=== PATIENT | male | born 1980 | race American Indian/Alaskan Native ===

== ENCOUNTER 2017-04-29 03:20 | Emergency (ER) | payer MEDICAID, OTHER ==
[2017-04-29 03:21] VITALS: BMI 28.0
[2017-04-29] MEDS ORDERED: Sodium Chloride 0.9% 1,000 ML IV STA (03:59)
--- NOTE | 2017-04-29 04:13 | ED PDOC ---
HPI: Abdomen Time Seen by Provider: 04/29/17 03:53 Chief Complaint (Nursing): Abdominal Pain Chief Complaint (Provider): Abdominal pain, Vomiting, Diarrhea History Per: Patient History/Exam Limitations: no limitations Onset/Duration Of Symptoms: Days (x 2) Outside of [place] travel?: No Current Symptoms Are (Timing): Still Present Additional Complaint(s): Rolando is a 36 y/o male with no past medical history, who presents to the ED for complaints of generalized abdominal pain, vomiting, and diarrhea, ongoing for 2 days. He reports 2-3 episodes daily of vomiting, and 2- 3 episodes of diarrhea. Vomiting has been non-bloody and non-bilious, but he states seeing a small amount of blood in the diarrhea at times. Denies any associated cough, fever, shortness of breath, or chest pain. Has not taken any remedies at home. PMD: None Past Medical History Reviewed: Historical Data, Nursing Documentation, Vital Signs Vital Signs: Last Vital Signs Temp 98.6 F 04/29/17 03:29 Pulse 89 04/29/17 03:29 Resp 17 04/29/17 03:29 BP 145/104 H 04/29/17 03:29 Pulse Ox 98 04/29/17 04:13 - Medical History PMH: Asthma, HTN (non compliant) Denies: Depression, HIV - Surgical History Surgical History: No Surg Hx - Family History Family History: States: Hypertension - Social History Current smoker - smoking cessation education provided: No Alcohol: None Drugs: Denies - Home Medications Home Medications: Ambulatory Orders Medication Instructions Recorded Dicyclomine [Bentyl] 20 mg PO Q12 PRN #20 tab 04/29/17 Ondansetron ODT [Zofran ODT] 4 mg PO Q6 PRN #16 odt 04/29/17 - Allergies Allergies/Adverse Reactions: Allergies Allergy/AdvReac Type Severity Reaction Status Date / Time No Known Allergies Allergy Verified 10/13/15 02:40 Review of Systems ROS Statement: Except As Marked, All Systems Reviewed And Found Negative Constitutional: Negative for: Fever Cardiovascular: Negative for: Chest Pain Respiratory: Negative for: Cough, Shortness of Breath Gastrointestinal: Positive for: Nausea, Vomiting, Abdominal Pain, Diarrhea, Hematochezia. Negative for: Hematemesis Physical Exam - Reviewed Nursing Documentation Reviewed: Yes Vital Signs Reviewed: Yes - Physical Exam Appears: Positive for: Non-toxic, No Acute Distress Head Exam: Positive for: ATRAUMATIC, NORMAL INSPECTION, NORMOCEPHALIC Skin: Positive for: Normal Color, Warm, Dry Eye Exam: Positive for: EOMI, Normal appearance, PERRL Neck: Positive for: Normal, Painless ROM, Supple Cardiovascular/Chest: Positive for: Regular Rate, Rhythm. Negative for: Murmur Respiratory: Positive for: Normal Breath Sounds. Negative for: Accessory Muscle Use, Respiratory Distress Gastrointestinal/Abdominal: Positive for: Soft, Tenderness (Epigastric tenderness) Back: Positive for: Normal Inspection Extremity: Positive for: Normal ROM. Negative for: Pedal Edema, Deformity Neurologic/Psych: Positive for: Alert, Oriented. Negative for: Motor/Sensory Deficits - Laboratory Results Result Diagrams: 04/29/17 04:25 04/29/17 04:06 - ECG O2 Sat by Pulse Oximetry: 98 (RA) Pulse Ox Interpretation: Normal Medical Decision Making Medical Decision Making: Time: 03:58 Initial Impression: 36 y/o male with abdominal pain and diarrheal illness Initial Plan: --Labs --IV fluids --Trial of Bentyl and Zofran --Pending reevaluation and disposition Time: 04:57 --Labs reviewed, revealing no clinically significant abnormalities --Patient reports marked improvement in symptoms --Patient is medically stable and will be discharged home with Prescriptions for Bentyl and Zofran Clinical Impression: Gastroenteritis Scribe Attestation: Documented by Brigette German, acting as a scribe for Satinder German MD Provider Scribe Attestation: All medical record entries made by the Scribe were at my direction and personally dictated by me. I have reviewed the chart and agree that the record accurately reflects my personal performance of the history, physical exam, medical decision making, and the department course for this patient. I have also personally directed, reviewed, and agree with the discharge instructions and disposition. Disposition - Clinical Impression Clinical Impression: Gastroenteritis - Patient ED Disposition Is Patient to be Admitted: No Counseled Patient/Family Regarding: Studies Performed, Diagnosis, Need For Followup, Rx Given - Disposition Referrals: [facility] [Outside] Disposition: Routine/Home Disposition Time: 04:57 Condition: STABLE Prescriptions: Dicyclomine [Bentyl] 20 mg PO Q12 PRN #20 tab PRN Reason: abdominal pain/diarrhea Ondansetron ODT [Zofran ODT] 4 mg PO Q6 PRN #16 odt PRN Reason: Nausea/Vomiting Instructions: Gastroenteritis (ED) Forms: [employer] (Lao)
[2017-04-29 04:37] LABS: BASO # 0.1 K/uL (0.0-0.2); EOS # 0.3 K/uL (0.0-0.7); EOS % 3.9 % (0.0-4.0); HEMATOCRIT 41.7 % (35.0-51.0); LYMPH # 3.6 K/uL (1.0-4.3); LYMPH % 46.9 % (20.0-40.0); MEAN CELL VOLUME 85.1 fl (80.0-94.0); MEAN CORPUSCULAR HEMOGLOBIN 28.6 pg (27.0-31.0); MEAN CORPUSCULAR HGB CONC 33.7 g/dL (33.0-37.0); MEAN PLATELET VOLUME 9.6 fl (7.2-11.7); MONO # 0.6 K/uL (0.0-0.8); NEUT # 3.1 K/uL (1.8-7.0); NEUT % 40.2 % (50.0-75.0); NRBC % 0.2 % (0.0-0.0); RED CELL DISTRIBUTION WIDTH 14.6 % (11.5-14.5); WHITE BLOOD COUNT 7.7 K/uL (4.8-10.8)
[2017-04-29 04:49] LABS: ALB/GLOB RATIO 1.3 (1.0-2.1); ALCOHOL SERUM < 10 mg/dl (0-10); ALKALINE PHOSPHATASE 56 U/L (38-126); ALT/SGPT 46 U/L (21-72); AST/SGOT 24 U/L (17-59); BILIRUBIN,TOTAL 0.5 mg/dl (0.2-1.3); BLOOD UREA NITROGEN 12 mg/dl (9-20); CARBON DIOXIDE 24 mmol/L (22-30); CHLORIDE 107 mmol/L (98-107); GFR AFRICAN-AMERICAN > 60; GLUCOSE,RANDOM 102 mg/dL (75-110); LIPASE 78 U/L (23-300); SODIUM 141 mmol/l (132-148); TOTAL PROTEIN 7.4 G/DL (6.3-8.2)
[2017-04-29 04:50] LABS: POTASSIUM 4.2 MMOL/L (3.6-5.0)
[2017-04-29 05:58] VITALS: BP 138/80; PULSE 70; RESP 16; TEMP 98; O2SAT 96
== END 2017-04-29 05:58 | disposition home or self-care (01) ==
LOC: H.ER 03:20
DX: K52.9 Noninfective gastroenteritis and colitis, unspecified (principal); I10 Essential (primary) hypertension; F17.210 Nicotine dependence, cigarettes, uncomplicated
CPT/HCPCS: 80053; 80320; 83690; 85025; 96360; 99284; J2405; J7040

== ENCOUNTER 2017-05-04 18:21 | Emergency (ER) | payer MEDICAID, OTHER ==
[2017-05-04 18:21] VITALS: BMI 28.0
[2017-05-04 18:32] VITALS: RESP 18; TEMP 98.6; O2SAT 99
[2017-05-04 19:02] LABS: BASO # 0.1 K/uL (0.0-0.2); BASO % 1.2 % (0.0-2.0); EOS # 0.2 K/uL (0.0-0.7); EOS % 2.9 % (0.0-4.0); HEMATOCRIT 39.9 % (35.0-51.0); LYMPH % 31.5 % (20.0-40.0); MEAN CORPUSCULAR HEMOGLOBIN 28.9 pg (27.0-31.0); MEAN PLATELET VOLUME 9.5 fl (7.2-11.7); MONO # 0.4 K/uL (0.0-0.8); MONO % 6.7 % (0.0-10.0); NEUT # 3.7 K/uL (1.8-7.0); NEUT % 57.7 % (50.0-75.0); NRBC % 0.1 % (0.0-0.0); RED CELL DISTRIBUTION WIDTH 14.6 % (11.5-14.5); WHITE BLOOD COUNT 6.5 K/uL (4.8-10.8)
[2017-05-04 19:16] LABS: ALB/GLOB RATIO 1.3 (1.0-2.1); ALKALINE PHOSPHATASE 64 U/L (38-126); ALT/SGPT 46 U/L (21-72); AST/SGOT 23 U/L (17-59); BILIRUBIN,TOTAL 0.3 mg/dl (0.2-1.3); BLOOD UREA NITROGEN 15 mg/dl (9-20); CALCIUM 9.7 mg/dL (8.4-10.2); CARBON DIOXIDE 22 mmol/L (22-30); CHLORIDE 109 mmol/L (98-107); GFR AFRICAN-AMERICAN > 60; GLUCOSE,RANDOM 128 mg/dL (75-110); LIPASE 78 U/L (23-300); MAGNESIUM 1.8 MG/DL (1.6-2.3); SODIUM 141 mmol/l (132-148); TOTAL PROTEIN 7.3 G/DL (6.3-8.2)
[2017-05-04 19:26] LABS: PARTIAL THROMBOPLASTIN TIME 30.8 Seconds (25.6-37.1)
[2017-05-04] MEDS ORDERED: Sodium Chloride 0.9% 500 ML IV ONE (19:51)
--- NOTE | 2017-05-04 19:59 | ED PDOC ---
HPI: Chest Pain Time Seen by Provider: 05/04/17 18:38 Chief Complaint (Nursing): Chest Pain History Per: Patient History/Exam Limitations: no limitations Onset/Duration Of Symptoms: Gradual (several months), Worse Since (for one week) Current Symptoms Are (Timing): Gone Now Severity: Mild Front/Back of Body, Lg (Color): 1 - sharp rads to shoulder Quality: Dull Associated Symptoms: denies: Nausea, Dyspnea, Diaphoresis, Syncope Modifying Factors: None Exacerbating Factors: Movement Alleviating Factors: None Additional Complaint(s): worse for one week, admits to smoking pcp, marijuana earlier today Past Medical History Reviewed: Historical Data, Nursing Documentation, Vital Signs Vital Signs: Last Vital Signs Temp 98.6 F 05/04/17 18:30 Pulse 101 H 05/04/17 20:41 Resp 18 05/04/17 20:41 BP 159/101 H 05/04/17 20:41 Pulse Ox 99 05/04/17 20:41 - Medical History PMH: Asthma, HTN (non compliant) Denies: Depression, HIV - Family History Family History: States: Unknown Family Hx, Hypertension - Living Arrangements Living Arrangements: With Family - Social History Current smoker - smoking cessation education provided: Yes Drugs: Cannabis, Other (pcp) - Home Medications Home Medications: Ambulatory Orders Medication Instructions Recorded Dicyclomine [Bentyl] 20 mg PO Q12 PRN #20 tab 04/29/17 Ondansetron ODT [Zofran ODT] 4 mg PO Q6 PRN #16 odt 04/29/17 - Allergies Allergies/Adverse Reactions: Allergies Allergy/AdvReac Type Severity Reaction Status Date / Time No Known Allergies Allergy Verified 10/13/15 02:40 ANAY Risk Score for UA/NSTEMI - ANAY Risk Score Age > 64: NO 3 or more CAD Risk Factors: NO Known CAD (Stenosis greater than 50%): NO Aspirin use in past 7 days: NO Severe Angina: NO EKG ST changes greater than 0.5mm: NO Positive Cardiac Marker: NO ANAY Score: 0 Risk %: 5% Review of Systems ROS Statement: Except As Marked, All Systems Reviewed And Found Negative Constitutional: Negative for: Fever, Chills Cardiovascular: Positive for: Chest Pain. Negative for: Palpitations Respiratory: Negative for: Cough, Shortness of Breath Gastrointestinal: Positive for: Nausea. Negative for: Vomiting, Abdominal Pain Neurological: Negative for: Weakness, Numbness, Confusion, Seizures, Altered Mental Status, Headache, Dizziness Physical Exam - Reviewed Nursing Documentation Reviewed: Yes Vital Signs Reviewed: Yes - Physical Exam Appears: Positive for: Uncomfortable Head Exam: Positive for: ATRAUMATIC, NORMAL INSPECTION, NORMOCEPHALIC Eye Exam: Positive for: Normal appearance, EOMI, PERRL Neck: Positive for: Normal, Painless ROM, Supple Cardiovascular/Chest: Positive for: Regular Rate, Rhythm. Negative for: Chest Non Tender (left chest reporduces compalitns), Edema, Gallop, Murmur, Bradycardia, Tachycardia, Ectopy, Friction Rub, Irregularly Irregular Respiratory: Positive for: Normal Breath Sounds. Negative for: Decreased Breath Sounds, Accessory Muscle Use, Crackles, Rales, Rhonchi, Stridor, Wheezing , Respiratory Distress Pulses-Radial (L): 2+ Pulses-Radial (R): 2+ Gastrointestinal/Abdominal: Positive for: Normal Exam, Bowel Sounds, Soft. Negative for: Tenderness Back: Positive for: Normal Inspection. Negative for: L CVA Tenderness, R CVA Tenderness Extremity: Positive for: Normal ROM. 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 Negative for: Motor/Sensory Deficits, Aphasia, Facial Droop - Laboratory Results Result Diagrams: 05/04/17 18:50 05/04/17 18:55 - ECG ECG: Positive for: Interpreted By Me ECG Rhythm: Positive for: Sinus Tachycardia (119). Negative for: ST/T Changes Interpretation Of Abn EKG: rate of 116 no evidence of ischemia O2 Sat by Pulse Oximetry: 99 Pulse Ox Interpretation: Normal - Radiology X-Ray: Interpreted by Me X-Ray Interpretation: No Acute Disease - Progress ED Course And Treament: d dimer and trop neg. advise close cards follow no exertion including sexual exertion until seen by cardiology advise to stop using drugs.. Re-evaluation Time: 21:00 Condition: Improved Disposition - Clinical Impression Clinical Impression: Chest pain - Patient ED Disposition Is Patient to be Admitted: No Counseled Patient/Family Regarding: Studies Performed, Diagnosis, Need For Followup - Disposition Referrals: Daniel Be MD [Staff Provider] - (2 to 3 days) [facility] [Outside] (2 to 3 days) Disposition: Routine/Home Disposition Time: 21:00 Condition: GOOD Instructions: Chest Pain (ED) Forms: [employer] (Burundian)
[2017-05-04 20:41] VITALS: BP 159/101; PULSE 101
[2017-05-04 22:21] LABS: RBC URINE < 1 /hpf (0-3); URINE BACTERIA RARE (<OCC); URINE BILIRUBIN NEGATIVE (NEGATIVE); URINE BLOOD SMALL (NEGATIVE); URINE COLOR STRAW (YELLOW); URINE GLUCOSE (UA) NEG (Normal); URINE KETONE NEGATIVE (NEGATIVE); URINE LEUKOCYTE ESTERASE NEG Leu/uL (Negative); URINE PROTEIN NEGATIVE (NEGATIVE); URINE UROBILINOGEN 0.2-1.0 mg/dL (0.2-1.0); WBC URINE < 1 /hpf (0-5)
--- NOTE | 2017-05-05 07:52 | RAD ---
HISTORY: cp COMPARISON: Comparison is made to 10/13/2015 TECHNIQUE: Chest PA and lateral FINDINGS: LUNGS: No active pulmonary disease. PLEURA: No significant pleural effusion identified. No pneumothorax apparent. CARDIOVASCULAR: Normal. OSSEOUS STRUCTURES: No significant abnormalities. VISUALIZED UPPER ABDOMEN: Normal. OTHER FINDINGS: None. IMPRESSION: No active disease.
--- NOTE | 2017-05-05 11:22 | CARD ---
APPROVED REPORT EKG Measurement Heart [id number] <Conclusion> Sinus tachycardia Otherwise normal ECG
== END 2017-05-04 22:46 | disposition home or self-care (01) ==
LOC: H.ER 18:21
DX: R07.89 Other chest pain (principal); I10 Essential (primary) hypertension
CPT/HCPCS: 71020; 80053; 80324; 80345; 80346; 80349; 80353; 80358; 80361; 81003; 83690; 83735; 83880; 83992; 84484; 85025; 85378; 85610; 85730; 93005; 99283; J7040

== ENCOUNTER 2017-08-04 13:53 | Emergency (ER) | payer MEDICAID ==
[2017-08-04 13:53] VITALS: BMI 35.2
[2017-08-04 13:57] VITALS: BP 162/111; PULSE 124; RESP 18; TEMP 97; O2SAT 97
--- NOTE | 2017-08-04 14:20 | ED PDOC ---
HPI: Altered Mental Status Time Seen by Provider: 08/04/17 13:59 Chief Complaint (Nursing): Altered Mental Status Chief Complaint (Provider): AMS History Per: Patient History/Exam Limitations: Clinical Condition Onset/Duration Of Symptoms: Days (x1) Onset Of Symptoms: Cannot Confirm Onset Usual Baseline: Unknown Exacerbating Factor(s): Unknown Use Of Anticoag/Antiplatlets: Unknown Associated Symptoms: denies: Chest Pain, Headache, Other (Palpitations) Additional Complaint(s): Rolando Villegas is a 36 year old male, with a past medical history of HTN, who was brought to the emergency department by EMS after he was found face down in the hallway of his building with AMS. Patient has no recollection of events. No witnesses to provide history of patient. He denies headache, chest pain, palpitations or ingesting drugs. No further medical complaints. PMD: None provided. Past Medical History Reviewed: Historical Data, Nursing Documentation, Vital Signs Vital Signs: Last Vital Signs Temp 97 F L 08/04/17 13:54 Pulse 124 H 08/04/17 13:54 Resp 18 08/04/17 13:54 BP 162/111 H 08/04/17 13:54 Pulse Ox 97 08/04/17 13:54 - Medical History PMH: Asthma, HTN (non compliant) Denies: Depression, HIV - Family History Family History: States: Unknown Family Hx, Hypertension - Social History Current smoker - smoking cessation education provided: Yes (Light smoker <10 cigarettes daily) Alcohol: Social Drugs: Other - Home Medications Home Medications: Ambulatory Orders Medication Instructions Recorded Dicyclomine [Bentyl] 20 mg PO Q12 PRN #20 tab 04/29/17 Ondansetron ODT [Zofran ODT] 4 mg PO Q6 PRN #16 odt 04/29/17 - Allergies Allergies/Adverse Reactions: Allergies Allergy/AdvReac Type Severity Reaction Status Date / Time No Known Allergies Allergy Verified 08/04/17 13:54 Review of Systems ROS Statement: Except As Marked, All Systems Reviewed And Found Negative Cardiovascular: Negative for: Chest Pain, Palpitations Neurological: Positive for: Altered Mental Status. Negative for: Headache Physical Exam - Reviewed Nursing Documentation Reviewed: Yes Vital Signs Reviewed: Yes - Physical Exam Appears: Positive for: Non-toxic Head Exam: Positive for: ATRAUMATIC, NORMAL INSPECTION, NORMOCEPHALIC Skin: Positive for: Normal Color, Warm, Dry Eye Exam: Positive for: EOMI, Normal appearance, PERRL Neck: Positive for: Normal, Painless ROM, Supple Cardiovascular/Chest: Positive for: Regular Rate, Rhythm. Negative for: Murmur Respiratory: Positive for: Normal Breath Sounds (clear bilaterally). Negative for: Respiratory Distress Gastrointestinal/Abdominal: Positive for: Normal Exam, Bowel Sounds, Soft. Negative for: Tenderness, Guarding, Rebound Back: Positive for: Normal Inspection. Negative for: L CVA Tenderness, R CVA Tenderness Extremity: Positive for: Normal ROM. Negative for: Deformity, Swelling Neurologic/Psych: Positive for: Alert, Oriented. 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 PLEURA: No significant pleural effusion identified. No pneumothorax apparent. CARDIOVASCULAR: Normal. OSSEOUS STRUCTURES: No significant abnormalities. VISUALIZED UPPER ABDOMEN: Normal. OTHER FINDINGS: None. IMPRESSION: No active disease. Scribe Attestation: Documented by Bob Conn acting as a scribe for Jermaine Corado MD. MD Marquez Attestation: All medical record entries made by the Scribe were at my direction and personally dictated by me. I have reviewed the chart and agree that the record accurately reflects my personal performance of the history, physical exam, medical decision making, and the department course for this patient. I have also personally directed, reviewed, and agree with the discharge instructions and disposition. Disposition - Clinical Impression Clinical Impression: Altered mental status - Patient ED Disposition Is Patient to be Admitted: Transfer of Care - Disposition Disposition: Transfer of Care Disposition Time: 15:00 Condition: FAIR Forms: [employer] (South African) Patient Signed Over To: Jamal Doyle
--- NOTE | 2017-08-04 14:55 | RAD ---
HISTORY: Syncop COMPARISON: 05/04/2017 TECHNIQUE: Chest PA and lateral FINDINGS: LUNGS: No active pulmonary disease. PLEURA: No significant pleural effusion identified. No pneumothorax apparent. CARDIOVASCULAR: Normal. OSSEOUS STRUCTURES: No significant abnormalities. VISUALIZED UPPER ABDOMEN: Normal. OTHER FINDINGS: None. IMPRESSION: No active disease.
--- NOTE | 2017-08-04 14:57 | CT ---
PROCEDURE: CT HEAD WITHOUT CONTRAST. HISTORY: r/o bleed COMPARISON: 12/18/2012 TECHNIQUE: Axial computed tomography images were obtained through the head/brain without intravenous contrast. Coronal and sagittal reconstructed images. Radiation dose: Total exam DLP = 857.65 mGy-cm. This CT exam was performed using one or more of the following dose reduction techniques: Automated exposure control, adjustment of the mA and/or kV according to patient size, and/or use of iterative reconstruction technique. FINDINGS: HEMORRHAGE: No intracranial hemorrhage. BRAIN: No mass effect or edema. No atrophy or chronic microvascular ischemic changes. VENTRICLES: Unremarkable. No hydrocephalus. CALVARIUM: Unremarkable. PARANASAL SINUSES: Unremarkable as visualized. No significant inflammatory changes. MASTOID AIR CELLS: Unremarkable as visualized. No inflammatory changes. OTHER FINDINGS: None. IMPRESSION: No acute intracranial abnormalities. No significant findings to account for the clinical presentation. No significant interval change compared to the prior examination(s).
[2017-08-04 15:24] LABS: BASO # 0.1 K/uL (0.0-0.2); BASO % 1.3 % (0.0-2.0); EOS # 0.1 K/uL (0.0-0.7); EOS % 1.6 % (0.0-4.0); HEMATOCRIT 40.7 % (35.0-51.0); LYMPH # 1.5 K/uL (1.0-4.3); LYMPH % 18.7 % (20.0-40.0); MEAN CELL VOLUME 85.7 fl (80.0-94.0); MEAN CORPUSCULAR HEMOGLOBIN 28.6 pg (27.0-31.0); MEAN CORPUSCULAR HGB CONC 33.4 g/dL (33.0-37.0); MEAN PLATELET VOLUME 9.7 fl (7.2-11.7); MONO # 0.5 K/uL (0.0-0.8); MONO % 6.5 % (0.0-10.0); NEUT % 71.9 % (50.0-75.0); WHITE BLOOD COUNT 8.3 K/uL (4.8-10.8)
[2017-08-04 15:25] LABS: ALB/GLOB RATIO 1.4 (1.0-2.1); ALCOHOL SERUM < 10 mg/dl (0-10); ALKALINE PHOSPHATASE 55 U/L (38-126); ALT/SGPT 42 U/L (21-72); AST/SGOT 17 U/L (17-59); BILIRUBIN,TOTAL 0.3 mg/dl (0.2-1.3); BLOOD UREA NITROGEN 17 mg/dl (9-20); CALCIUM 9.5 mg/dL (8.4-10.2); CARBON DIOXIDE 23 mmol/L (22-30); CHLORIDE 111 mmol/L (98-107); GFR AFRICAN-AMERICAN > 60; GLUCOSE,RANDOM 97 mg/dL (75-110); POTASSIUM 3.7 MMOL/L (3.6-5.0); SODIUM 143 mmol/l (132-148); TOTAL PROTEIN 7.3 G/DL (6.3-8.2)
--- NOTE | 2017-08-04 18:08 | ED PDOC ---
- Laboratory Results Result Diagrams: 08/04/17 14:50 08/04/17 15:08 Interpretation Of Abn Labs: no acute - ECG O2 Sat by Pulse Oximetry: 97 (RA) - CT Scan/US ct Other Rad Studies (CT/US): Read By Radiologist Other Rad Interpretation: no acute - Progress ED Course And Treament: 1500: Took over care from Dr. Corado. Pt. found down so brought to the ED. Hx of pcp used ED visits. Pt. currently AAOx3. Pain free. Tolerating po. Pending blood work and urine. 1650: Pt. not found in room. Last seen 1600, pt. was aaox3. Ambulating with no issues. Had capacity to make decisions. Left before treatment complete. Disposition - Clinical Impression Clinical Impression: Drug abuse - POA Present On Arrival: None - Disposition Disposition: Left W/O Treatment Disposition Time: 16:50 Condition: STABLE
--- NOTE | 2017-08-05 09:01 | CARD ---
APPROVED REPORT EKG Measurement Heart [id number] [place] [id number] [id number] <Conclusion> Normal sinus rhythm Normal ECG
== END 2017-08-04 16:20 | disposition left against medical advice (07) ==
LOC: H.ER 13:53
DX: F19.10 Other psychoactive substance abuse, uncomplicated (principal); F17.210 Nicotine dependence, cigarettes, uncomplicated; I10 Essential (primary) hypertension; J45.909 Unspecified asthma, uncomplicated

== ENCOUNTER 2017-09-27 01:18 | Emergency (ER) | payer MEDICAID ==
[2017-09-27 01:18] VITALS: BMI 35.2
[2017-09-27 01:37] VITALS: RESP 18; TEMP 98.4; O2SAT 99
--- NOTE | 2017-09-27 01:59 | ED PDOC ---
HPI: Chest Pain Time Seen by Provider: 09/27/17 01:36 Chief Complaint (Nursing): Chest Pain Chief Complaint (Provider): chest pain History Per: Patient History/Exam Limitations: no limitations Onset/Duration Of Symptoms: Hrs (6) Current Symptoms Are (Timing): Still Present Quality: Aching Additional History Per: Patient Additional Complaint(s): 36 y/o male presents with left-sided chest discomfort x 6 hours. Associated "tingling" to left hand. Denies fever, headache, dizziness, extremity weakness , shortness of breath, palpitations, abdominal pain, leg pain/swelling. Past Medical History Reviewed: Historical Data, Nursing Documentation, Vital Signs Vital Signs: Last Vital Signs Temp 98.4 F 09/27/17 01:35 Pulse 80 09/27/17 02:30 Resp 18 09/27/17 01:35 BP 140/101 H 09/27/17 02:30 Pulse Ox 99 09/27/17 03:00 - Medical History PMH: Asthma, HTN (non compliant), Hypercholesterolemia Denies: Depression, HIV - Surgical History Surgical History: No Surg Hx - Family History Family History: States: Unknown Family Hx, Hypertension - Home Medications Home Medications: Ambulatory Orders Medication Instructions Recorded Dicyclomine [Bentyl] 20 mg PO Q12 PRN #20 tab 04/29/17 Ondansetron ODT [Zofran ODT] 4 mg PO Q6 PRN #16 odt 04/29/17 - Allergies Allergies/Adverse Reactions: Allergies Allergy/AdvReac Type Severity Reaction Status Date / Time No Known Allergies Allergy Verified 08/04/17 13:54 ANAY Risk Score for UA/NSTEMI - ANAY Risk Score Age > 64: NO 3 or more CAD Risk Factors: NO Known CAD (Stenosis greater than 50%): NO Aspirin use in past 7 days: NO Severe Angina: NO EKG ST changes greater than 0.5mm: NO Positive Cardiac Marker: NO ANAY Score: 0 Risk %: 5% Review of Systems ROS Statement: Except As Marked, All Systems Reviewed And Found Negative Cardiovascular: Positive for: Chest Pain Physical Exam - Reviewed Nursing Documentation Reviewed: Yes Vital Signs Reviewed: Yes - Physical Exam Appears: Positive for: Well, Non-toxic, No Acute Distress Head Exam: Positive for: ATRAUMATIC, NORMAL INSPECTION, NORMOCEPHALIC Skin: Positive for: Normal Color Eye Exam: Positive for: Normal appearance ENT: Positive for: Normal ENT Inspection Cardiovascular/Chest: Positive for: Regular Rate, Rhythm Respiratory: Positive for: Normal Breath Sounds Gastrointestinal/Abdominal: Positive for: Normal Exam Back: Positive for: Normal Inspection Extremity: Positive for: Normal ROM Neurologic/Psych: Positive for: Alert, Oriented - Laboratory Results Result Diagrams: 09/27/17 02:15 09/27/17 02:15 - ECG ECG: Positive for: Viewed By Me (reviewed by ED attending) ECG Rhythm: Positive for: Sinus Rhythm O2 Sat by Pulse Oximetry: 99 Pulse Ox Interpretation: Normal - Radiology X-Ray: Viewed By Me X-Ray Interpretation: No Acute Disease - Progress ED Course And Treament: labs, ekg, chest xray Second trop neg. Case discussed with ED attending Dr. Pride; agrees with plan to discharge and follow up outpatient. Patient educated on findings, advised follow up PMD 2-3 days. Return precautions given. Disposition - Clinical Impression Clinical Impression: Chest pain - Patient ED Disposition Is Patient to be Admitted: No Counseled Patient/Family Regarding: Studies Performed, Diagnosis, Need For Followup - Disposition Referrals: Chanell Dean MD [Medical Doctor] - Disposition: Routine/Home Disposition Time: 05:44 Condition: STABLE Instructions: Chest Pain (ED)
[2017-09-27 02:29] LABS: BASO # 0.2 K/uL (0.0-0.2); BASO % 2.9 % (0.0-2.0); EOS # 0.2 K/uL (0.0-0.7); HEMOGLOBIN 13.2 g/dL (12.0-18.0); LYMPH # 3.8 K/uL (1.0-4.3); LYMPH % 52.7 % (20.0-40.0); MEAN CELL VOLUME 84.6 fl (80.0-94.0); MEAN CORPUSCULAR HEMOGLOBIN 28.4 pg (27.0-31.0); MEAN CORPUSCULAR HGB CONC 33.6 g/dL (33.0-37.0); MEAN PLATELET VOLUME 9.2 fl (7.2-11.7); MONO # 0.5 K/uL (0.0-0.8); MONO % 7.5 % (0.0-10.0); NEUT # 2.5 K/uL (1.8-7.0); NEUT % 33.9 % (50.0-75.0); RBC 4.63 Mil/uL (4.40-5.90); RED CELL DISTRIBUTION WIDTH 14.8 % (11.5-14.5); WHITE BLOOD COUNT 7.3 K/uL (4.8-10.8)
[2017-09-27 02:38] LABS: ALB/GLOB RATIO 1.3 (1.0-2.1); ALBUMIN 3.9 g/dL (3.5-5.0); ALT/SGPT 32 U/L (21-72); AST/SGOT 20 U/L (17-59); BLOOD UREA NITROGEN 13 mg/dl (9-20); GFR AFRICAN-AMERICAN > 60; GFR NON-AFRICAN AMERICAN > 60
[2017-09-27 06:13] VITALS: BP 128/84; PULSE 82
--- NOTE | 2017-09-27 13:43 | RAD ---
HISTORY: chest pain COMPARISON: 08/04/2017 TECHNIQUE: Chest PA and lateral FINDINGS: LUNGS: No active pulmonary disease. PLEURA: No significant pleural effusion identified. No pneumothorax apparent. CARDIOVASCULAR: Normal. OSSEOUS STRUCTURES: No significant abnormalities. VISUALIZED UPPER ABDOMEN: Normal. OTHER FINDINGS: None. IMPRESSION: No active disease. No significant interval change compared to the prior examination(s).
--- NOTE | 2017-09-28 09:42 | CARD ---
APPROVED REPORT EKG Measurement Heart [id number] [place] [id number] [id number] <Conclusion> Normal sinus rhythm Normal ECG
== END 2017-09-27 06:15 | disposition home or self-care (01) ==
LOC: H.ER 01:18
DX: R07.89 Other chest pain (principal)

== ENCOUNTER 2018-01-09 01:57 | Emergency (ER) | payer MEDICAID ==
[2018-01-09 01:57] VITALS: BMI 35.2
[2018-01-09 02:56] VITALS: BP 143/97; PULSE 80; RESP 16; TEMP 97.5; O2SAT 98
== END 2018-01-09 03:20 | disposition left against medical advice (07) ==
LOC: H.ER 01:57
DX: Z02.89 Encounter for other administrative examinations (principal); R10.9 Unspecified abdominal pain

== ENCOUNTER 2018-02-07 00:32 | Emergency (ER) | payer MEDICAID ==
[2018-02-07 00:32] VITALS: BMI 35.2
[2018-02-07 00:57] VITALS: RESP 18
--- NOTE | 2018-02-07 01:17 | ED PDOC ---
HPI: Abdomen Time Seen by Provider: 02/07/18 00:53 Chief Complaint (Nursing): Abdominal Pain Chief Complaint (Provider): abdominal pain History Per: Patient History/Exam Limitations: no limitations Onset/Duration Of Symptoms: Days (weeks), Waxing/Waning Location Of Pain/Discomfort: Epigastric Associated Symptoms: Nausea, Vomiting Additional Complaint(s): 37 y/o male presents for evaluation of intermittent epigastric abdominal pain x 3 weeks. Associated vomiting, mostly after eating greasy or spicy foods. Denies fever, chest pain, shortness of breath, palpitations , changes in bowel movements, urinary symptoms. Past Medical History Reviewed: Historical Data, Nursing Documentation, Vital Signs Vital Signs: Last Vital Signs Temp 97.6 F 02/07/18 04:53 Pulse 84 02/07/18 04:53 Resp 18 02/07/18 04:53 BP 128/89 02/07/18 04:53 Pulse Ox 98 02/07/18 04:53 - Medical History PMH: Asthma, HTN (non compliant), Hypercholesterolemia Denies: Depression, HIV - Surgical History Surgical History: No Surg Hx - Family History Family History: States: Unknown Family Hx, Hypertension - Home Medications Home Medications: Ambulatory Orders Medication Instructions Recorded Dicyclomine [Bentyl] 20 mg PO Q12 PRN #20 tab 04/29/17 Ondansetron ODT [Zofran ODT] 4 mg PO Q6 PRN #16 odt 04/29/17 Famotidine [Pepcid] 20 mg PO BID #10 tab 02/07/18 Ondansetron ODT [Zofran ODT] 4 mg PO Q8 PRN #10 odt 02/07/18 - Allergies Allergies/Adverse Reactions: Allergies Allergy/AdvReac Type Severity Reaction Status Date / Time No Known Allergies Allergy Verified 08/04/17 13:54 Review of Systems ROS Statement: Except As Marked, All Systems Reviewed And Found Negative Gastrointestinal: Positive for: Nausea, Vomiting, Abdominal Pain Physical Exam - Reviewed Nursing Documentation Reviewed: Yes Vital Signs Reviewed: Yes - Physical Exam Appears: Positive for: Well, Non-toxic, No Acute Distress (sleeping) Head Exam: Positive for: ATRAUMATIC, NORMAL INSPECTION, NORMOCEPHALIC Skin: Positive for: Normal Color Eye Exam: Positive for: Normal appearance ENT: Positive for: Normal ENT Inspection Cardiovascular/Chest: Positive for: Regular Rate, Rhythm Respiratory: Positive for: Normal Breath Sounds Gastrointestinal/Abdominal: Positive for: Bowel Sounds, Soft, Tenderness ( epigastric) Back: Positive for: Normal Inspection Extremity: Positive for: Normal ROM Neurologic/Psych: Positive for: Alert, Oriented - Laboratory Results Result Diagrams: 02/07/18 01:25 02/07/18 01:25 - ECG O2 Sat by Pulse Oximetry: 99 - Progress ED Course And Treament: labs, IV fluids, IV pepcid, ODT zofran EXAM: CT Abdomen and Pelvis With Intravenous Contrast EXAM DATE/TIME: 02/07/2018 1:52 AM CLINICAL HISTORY: 37 years old, male; Pain; Abdominal pain; Epigastric; Additional info: Epigastric pain, elevated lipase TECHNIQUE: Axial computed tomography images of the abdomen and pelvis with intravenous contrast. All CT scans at this facility use one or more dose reduction techniques, viz.: automated exposure control; ma/kV adjustment per patient size (including targeted exams where dose is matched to indication; i.e. head); or iterative reconstruction technique. CONTRAST: 95 ml of [id number] administered intravenously. COMPARISON: CT ABD AND PELVIS 2013-11-10 13:40 FINDINGS: Lower thorax: No acute findings. ABDOMEN: Liver: Normal. No mass. Gallbladder and bile ducts: The gallbladder is somewhat contracted with no stones. Pancreas: Peripancreatic fat appears normal. Spleen: Normal. No splenomegaly. Adrenals: Normal. No mass. Kidneys and ureters: Normal. No hydronephrosis. Stomach and bowel: There is colonic diverticulosis without evidence of diverticulitis. Appendix: A normal appendix is seen. PELVIS: Bladder: Unremarkable as visualized. Reproductive: Unremarkable as visualized. ABDOMEN and PELVIS: Intraperitoneal space: Normal. No free air. No significant fluid collection. Bones/joints: No acute fracture. No dislocation. Soft tissues: Unremarkable. Vasculature: Normal. No abdominal aortic aneurysm. Lymph nodes: Normal. No enlarged lymph nodes. IMPRESSION: 1. Colonic diverticulosis without diverticulitis. 2. Otherwise negative CT abdomen/pelvis. Peripancreatic fat appears normal. Lipase<800, not considered acute pancreatitis Patient tolerated PO Sleeping throughout ED visit Case discussed with ED attending Dr. German, agrees with plan for d/c and outpatient f/up Patient educated on findings, discharged with rx pepcid, zofran. Advised follow up PMD/GI Return precautions given Disposition - Clinical Impression Clinical Impression: Abdominal pain, Serum lipase elevation, PCP abuse - Patient ED Disposition Is Patient to be Admitted: No Counseled Patient/Family Regarding: Studies Performed, Diagnosis, Need For Followup, Rx Given - Disposition Referrals: Cat Wilkes MD [Medical Doctor] - Disposition: Routine/Home Disposition Time: 04:50 Condition: IMPROVED Prescriptions: Famotidine [Pepcid] 20 mg PO BID #10 tab Ondansetron ODT [Zofran ODT] 4 mg PO Q8 PRN #10 odt PRN Reason: Nausea/Vomiting Instructions: Acute Abdomen (Belly Pain), Adult (DC), Drug Abuse and Drug Addiction (DC) Forms: [facility] ([place])
[2018-02-07] MEDS ORDERED: Famotidine 20mg/50ml 20 MG/50 ML BAG IVPB ONE (01:29)
[2018-02-07] MEDS: Famotidine 20mg/50ml Premix IVPB STA (01:31)
[2018-02-07] MEDS: Sodium Chloride 0.9% 1,000 ML IV STA ×2 (01:31→02:48)
[2018-02-07 01:40] LABS: BASO # 0.1 K/uL (0.0-0.2); BASO % 0.9 % (0.0-2.0); EOS # 0.3 K/uL (0.0-0.7); EOS % 3.9 % (0.0-4.0); HEMOGLOBIN 13.4 g/dL (12.0-18.0); LYMPH # 2.7 K/uL (1.0-4.3); MEAN CELL VOLUME 87.2 fl (80.0-94.0); MEAN CORPUSCULAR HEMOGLOBIN 29.3 pg (27.0-31.0); MEAN CORPUSCULAR HGB CONC 33.6 g/dL (33.0-37.0); MEAN PLATELET VOLUME 8.9 fl (7.2-11.7); MONO # 0.5 K/uL (0.0-0.8); MONO % 7.8 % (0.0-10.0); NEUT # 3.4 K/uL (1.8-7.0); NEUT % 48.4 % (50.0-75.0); NRBC % 0.1 % (0.0-0.0); RBC 4.56 Mil/uL (4.40-5.90); RED CELL DISTRIBUTION WIDTH 14.6 % (11.5-14.5)
[2018-02-07 01:45] LABS: ALB/GLOB RATIO 1.3 (1.0-2.1); ALT/SGPT 41 U/L (21-72); AST/SGOT 35 U/L (17-59); BLOOD UREA NITROGEN 14 mg/dl (9-20); CALCIUM 9.3 mg/dL (8.4-10.2); GFR AFRICAN-AMERICAN > 60; GFR NON-AFRICAN AMERICAN > 60; LIPASE 687 U/L (23-300)
[2018-02-07] MEDS ORDERED: Iohexol 300 100 ML IJ ONE (02:02)
[2018-02-07] MEDS ORDERED: Sodium Chloride 0.9% 50 ML IV ONE (02:02)
[2018-02-07 04:08] LABS: BARBITURATES, UR NEGATIVE (NEGATIVE); BENZODIAZEPINES, UR NEGATIVE (NEGATIVE); OPIATES, UR NEGATIVE (NEGATIVE); PHENCYCLIDINE, UR POSITIVE (NEGATIVE)
[2018-02-07 04:54] VITALS: BP 128/89; PULSE 84; TEMP 97.6
--- NOTE | 2018-02-07 10:46 | CT ---
PROCEDURE: CT Abdomen and Pelvis with contrast HISTORY: epigastric pain, elevated lipase COMPARISON: Abdomen and pelvis CT 11/10/2013. TECHNIQUE: Helical CT of the abdomen and pelvis was performed without oral or intravenous contrast as per referring physician request Contrast dose: Omnipaque 300, 95 cc Radiation dose: Total exam DLP = 539.16 mGy-cm. This CT exam was performed using one or more of the following dose reduction techniques: Automated exposure control, adjustment of the mA and/or kV according to patient size, and/or use of iterative reconstruction technique. FINDINGS: LOWER THORAX: A stable subpleural nodule is smaller in size measuring only 4 mm as compared to 6 mm previously at the left lower lobe in image 27 series 3 approaching the lateral left costophrenic sulcus. Lung bases are otherwise remarkable only for a small hiatal hernia. LIVER: Unremarkable. No gross lesion or ductal dilatation. GALLBLADDER AND BILE DUCTS: Unremarkable. PANCREAS: Unremarkable. No gross lesion or ductal dilatation. No peripancreatic reaction or fluid collection appreciated. No demonstrated duct dilatation. SPLEEN: Unremarkable. ADRENALS: Unremarkable. No mass. KIDNEYS AND URETERS: Unremarkable. No hydronephrosis. No solid mass. VASCULATURE: Unremarkable. No aortic aneurysm. BOWEL: Left colonic diverticular changes are identified which are nonacute. No obstruction. No gross mural thickening. APPENDIX: Normal appendix. PERITONEUM: Unremarkable. No free fluid. No free air. LYMPH NODES: Unremarkable. No enlarged lymph nodes. BLADDER: Unremarkable. REPRODUCTIVE: Unremarkable. BONES: No acute fracture. OTHER FINDINGS: None. IMPRESSION: 1. Left colonic diverticulosis without diverticulitis. 2. Benign nodule left lower lobe. Concordant preliminary report from [facility], 02/07/2018.
[2018-02-08 03:45] VITALS: O2SAT 99
== END 2018-02-07 04:54 | disposition home or self-care (01) ==
LOC: H.ER 00:32
DX: R10.9 Unspecified abdominal pain (principal); F16.10 Hallucinogen abuse, uncomplicated; R74.8 Abnormal levels of other serum enzymes; E78.00 Pure hypercholesterolemia, unspecified; I10 Essential (primary) hypertension; J45.909 Unspecified asthma, uncomplicated; K57.30 Diverticulosis of large intestine without perforation or abscess without bleeding
CPT/HCPCS: 74177; 80053; 80320; 80324; 80345; 80346; 80349; 80353; 80358; 80361; 83690; 83992; 85025; 96361; 96365; 99284; J7030; Q9967

== ENCOUNTER 2018-08-22 19:02 | Emergency (ER) | payer SELFPAY ==
[2018-08-22 19:02] VITALS: BMI 35.2
[2018-08-22] MEDS ORDERED: Alum-Mag Hydrox-Simethicone Susp (30 mL) PO STA (20:04)
[2018-08-22] MEDS ORDERED: Alum-Mag Hydrox-Simethicone Susp (30 mL) ONE (21:01)
[2018-08-22 21:06] LABS: BASO # 0.1 K/uL (0.0-0.2); EOS # 0.1 K/uL (0.0-0.7); EOS % 2.6 % (0.0-4.0); HEMOGLOBIN 14.1 g/dL (12.0-18.0); LYMPH # 2.3 K/uL (1.0-4.3); LYMPH % 39.5 % (20.0-40.0); MEAN CELL VOLUME 87.2 fl (80.0-94.0); MEAN CORPUSCULAR HEMOGLOBIN 29.3 pg (27.0-31.0); MEAN CORPUSCULAR HGB CONC 33.6 g/dL (33.0-37.0); MONO # 0.5 K/uL (0.0-0.8); MONO % 9.4 % (0.0-10.0); NEUT # 2.7 K/uL (1.8-7.0); NEUT % 47.5 % (50.0-75.0); NRBC % 0.1 % (0.0-0.0); RBC 4.81 Mil/uL (4.40-5.90); RED CELL DISTRIBUTION WIDTH 14.4 % (11.5-14.5); WHITE BLOOD COUNT 5.7 K/uL (4.8-10.8)
[2018-08-22 21:18] LABS: BLOOD UREA NITROGEN 20 mg/dl (9-20); CALCIUM 9.1 mg/dL (8.4-10.2); GFR NON-AFRICAN AMERICAN > 60; LIPASE 110 U/L (23-300)
[2018-08-22 21:21] LABS: ALB/GLOB RATIO 1.3 (1.0-2.1); ALBUMIN 4.3 g/dL (3.5-5.0); ALT/SGPT 31 U/L (21-72); AST/SGOT 38 U/L (17-59)
--- NOTE | 2018-08-22 21:34 | ED PDOC ---
HPI: General Adult Time Seen by Provider: 08/22/18 19:18 Chief Complaint (Nursing): Lower Extremity Problem/Injury Chief Complaint (Provider): Generalized weakness History Per: Patient History/Exam Limitations: no limitations Onset/Duration Of Symptoms: Other (last 3 weeks ) Current Symptoms Are (Timing): Still Present Additional Complaint(s): 37 year old male with a history of HTN and cholesterol presents to the ED for an evaluation of generalized weakness. Patient reports since the past 3 weeks, he has fatigue, malaise and cough. Also states he has chronic abdominal pain for months associated with vomiting and exacerbated from greasy food for which he was evaluated for in the ED in the past. Patient also reports of left pinky toe pain since May when he his is foot against the corner of the bed and has lesion on the pinky toe. Otherwise patient denies fever, shortness of breath, chills or runny nose. PMD: [place] Past Medical History Reviewed: Historical Data, Nursing Documentation, Vital Signs Vital Signs: Last Vital Signs Temp 98.3 F 08/22/18 19:10 Pulse 92 H 08/22/18 19:10 Resp 16 08/22/18 19:10 BP 169/118 H 08/22/18 19:10 Pulse Ox 100 08/22/18 19:10 - Medical History PMH: Asthma, HTN (non compliant), Hypercholesterolemia Denies: Depression, HIV - Family History Family History: States: Unknown Family Hx, Hypertension - Social History Current smoker - smoking cessation education provided: Yes Alcohol: Social Drugs: Other (PCP) - Home Medications Home Medications: Ambulatory Orders Medication Instructions Recorded Dicyclomine [Bentyl] 20 mg PO Q12 PRN #20 tab 04/29/17 Ondansetron ODT [Zofran ODT] 4 mg PO Q6 PRN #16 odt 04/29/17 Famotidine [Pepcid] 20 mg PO BID #10 tab 02/07/18 Ondansetron ODT [Zofran ODT] 4 mg PO Q8 PRN #10 odt 02/07/18 Famotidine [Pepcid] 40 mg PO DAILY PRN #30 tab 08/22/18 - Allergies Allergies/Adverse Reactions: Allergies Allergy/AdvReac Type Severity Reaction Status Date / Time No Known Allergies Allergy Verified 08/22/18 19:09 Review of Systems ROS Statement: Except As Marked, All Systems Reviewed And Found Negative (As per HPI, otherwise negative) Constitutional: Positive for: Weakness (generalized ), Malaise. Negative for: Fever, Chills ENT: Negative for: Nose Discharge Respiratory: Positive for: Cough Gastrointestinal: Positive for: Vomiting, Abdominal Pain (chronic). Negative for: Nausea, Diarrhea Skin: Positive for: Lesions (left pinky toe) Physical Exam - Physical Exam Appears: Positive for: No Acute Distress Head Exam: Positive for: ATRAUMATIC, NORMOCEPHALIC Skin: Positive for: Warm, Dry Eye Exam: Positive for: EOMI, PERRL, Conjunctival injection ENT: Negative for: Pharyngeal Erythema, Tonsillar Exudate Neck: Positive for: Painless ROM, Supple Cardiovascular/Chest: Positive for: Regular Rate, Rhythm. Negative for: Murmur Respiratory: Positive for: Normal Breath Sounds. Negative for: Respiratory Distress Gastrointestinal/Abdominal: Positive for: Normal Exam, Soft. Negative for: Tenderness, Mass, Distended, Guarding, Rebound Back: Positive for: Normal Inspection. Negative for: Muscle Spasm Extremity: Positive for: Other. Negative for: Tenderness (On left foot, on 5th digit there is chronic callus at dorsum of toe located on IP joint, no erythema ), Deformity, Swelling Lymphatic: Negative for: Adenopathy Neurologic/Psych: Positive for: Alert. Negative for: Motor/Sensory Deficits - Laboratory Results Result Diagrams: 08/22/18 21:02 08/22/18 21:02 - ECG O2 Sat by Pulse Oximetry: 100 (RA) Pulse Ox Interpretation: Normal Medical Decision Making Medical Decision Making: Time: 2003 Initial Impression: weakness, chronic abdominal pain and callus on left 5th toe Alcohol serum CMP Drug screen Lipase ED urine dipstick CBC w/ differential IV insertion Lidocaine 2% 10ml Maalox Plus 30ml Pepcid 40mg Reevaluation Upon review, patient's labs are unremarkable and patient's previous visit shows full work up for abdomen including the CT scan that was unremarkable. Upon provider reevaluation patient is feeling better, is medically stable, and requires no further treatment in the ED at this time. Patient will be discharged home. Counseling was provided and all questions were answered regarding diagnosis and need for follow up at clinic. There is agreement to discharge plan. Return if symptoms persist or worsen. Scribe Attestation: Documented by Daniel Hutson, acting as a scribe for Martha Jones MD Provider Scribe Attestation: All medical record entries made by the Scribe were at my direction and personally dictated by me. I have reviewed the chart and agree that the record accurately reflects my personal performance of the history, physical exam, medical decision making, and the department course for this patient. I have also personally directed, reviewed, and agree with the discharge instructions and disposition. Disposition - Clinical Impression Clinical Impression: Abdominal pain - Patient ED Disposition Is Patient to be Admitted: No - Disposition Referrals: [facility] [Outside] (FOLLOW UP WITH CLINIC IN 1-2 WEEKS FOR FURTHER EVALUATION) Disposition: Routine/Home Disposition Time: 22:00 Condition: STABLE Prescriptions: Famotidine [Pepcid] 40 mg PO DAILY PRN #30 tab PRN Reason: reflux Instructions: Acute Abdomen (Belly Pain), Adult (DC), Generalized Weakness (DC) Forms: [employer] (Telugu)
[2018-08-23 00:28] VITALS: BP 153/107; PULSE 86; RESP 18; TEMP 98.4
[2018-08-25 15:31] VITALS: O2SAT 100
== END 2018-08-22 22:22 | disposition home or self-care (01) ==
LOC: H.ER 19:02
DX: R10.9 Unspecified abdominal pain (principal); F17.200 Nicotine dependence, unspecified, uncomplicated; G89.29 Other chronic pain; I10 Essential (primary) hypertension; J45.909 Unspecified asthma, uncomplicated
CPT/HCPCS: 80053; 83690; 85025; 99284; G0480

== ENCOUNTER 2018-11-21 21:22 | Inpatient (IN) | payer MEDICAID ==
--- NOTE | 2018-11-21 21:41 | ED PDOC ---
HPI: Psych/Substance Abuse Time Seen by Provider: 11/21/18 21:24 Chief Complaint (Provider): Possible Substance Abuse ED Caveat: Uncooperative History Per: EMS, Other ([place] [employer]) History/Exam Limitations: other (uncooperative and agitated) Onset/Duration Of Symptoms: Mins Current Symptoms Are (Timing): Still Present Additional Complaint(s): Patient is a 38 y/o male with a PMHx of HTN, asthma, and hypercholesterolemia who was brought in by EMS and [place] [employer] after patient was seen struggling with his gait. As per [place] [employer], patient is known well for alcohol and PCP use. Patient has been very combative and irate, screaming, and cursing at the scene. EMS and [place] [employer] are currently at bedside. Patient is acting very aggressively and is trying to leave the ED. EMS and [place] [employer] tried to calm the patient down but he is not responding. Patient is currently under arrest. Of note, patient also has a history of combative behavior and has been restrained in the past. PCP: None Provided Past Medical History Reviewed: Historical Data, Nursing Documentation, Vital Signs - Medical History PMH: Asthma, HTN (non compliant), Hypercholesterolemia Denies: Depression, HIV - Surgical History Surgical History: No Surg Hx - Family History Family History: States: Hypertension - Social History Alcohol: > 2 Drinks/Day Drugs: Other (PCP) - Home Medications Home Medications: Ambulatory Orders Medication Instructions Recorded Dicyclomine [Bentyl] 20 mg PO Q12 PRN #20 tab 04/29/17 Ondansetron ODT [Zofran ODT] 4 mg PO Q6 PRN #16 odt 04/29/17 Famotidine [Pepcid] 20 mg PO BID #10 tab 02/07/18 Ondansetron ODT [Zofran ODT] 4 mg PO Q8 PRN #10 odt 02/07/18 Famotidine [Pepcid] 40 mg PO DAILY PRN #30 tab 08/22/18 - Allergies Allergies/Adverse Reactions: Allergies Allergy/AdvReac Type Severity Reaction Status Date / Time No Known Allergies Allergy Verified 08/22/18 19:09 Review of Systems Review Of Systems: ROS cannot be obtained secondary to pt's inabilty to answer questions. Physical Exam - Reviewed Nursing Documentation Reviewed: Yes Vital Signs Reviewed: Yes - Physical Exam Appears: Positive for: In Acute Distress (emotional, irrate, screaming, and cursing) Head Exam: Positive for: ATRAUMATIC, NORMAL INSPECTION, NORMOCEPHALIC Skin: Positive for: Normal Color, Warm. Negative for: Rash Eye Exam: Positive for: Normal appearance ENT: Positive for: Other (white powder noted around perioral area) Neck: Positive for: Normal, Painless ROM, Supple Cardiovascular/Chest: Positive for: Tachycardia. Negative for: Murmur Respiratory: Positive for: Normal Breath Sounds. Negative for: Respiratory Distress Gastrointestinal/Abdominal: Positive for: Normal Exam, Soft. Negative for: Tenderness Back: Positive for: Normal Inspection. Negative for: L CVA Tenderness, R CVA Tenderness, Vertebral Tenderness (including c-spine) Extremity: Positive for: Normal ROM. Negative for: Pedal Edema, Deformity Neurological/Psych: Positive for: Awake, Alert, Mood/Affect (combative behavior), Gait (unsteady) - Laboratory Results Result Diagrams: 11/21/18 22:10 11/21/18 22:10 Medical Decision Making Medical Decision Making: Time: 1231 Impression: Agitated Patient, Possible Drug Abuse Plan: Alcohol Serum CMP Drug Screen, Urine CBC [employer] 1:1 Observation UA Attempted to calm patient by talking to him and offering him food but pt. is not responding appropriately and continues to curse at ED staff and [place] [employer]. Pt. continues to attempt to get out of stretcher despite multiple attempts to calm patient. Pt. will require Ativan and Haldol to alleviate agitation. Restraints ordered to prevent pt. from harming himself and ED staff. 2250 CO2 - 11 Case d/w Dr. Martinez who recommends IV fluids, CPK, and repeat BMP after completion of bolus. Scribe Attestation: Documented by Chun Green, acting as a scribe forGerman London PA-C. Provider Scribe Attestation: All medical record entries made by the Scribe were at my direction and personally dictated by me. I have reviewed the chart and agree that the record accurately reflects my personal performance of the history, physical exam, medical decision making, and the department course for this patient. I have also personally directed, reviewed, and agree with the discharge instructions and disposition. Disposition - Clinical Impression Clinical Impression: Aggressive behavior - Patient ED Disposition Is Patient to be Admitted: Transfer of Care (Signed out to Violeta RITTER pending sobriety, repeat labs, and re-evaluation) - Disposition Disposition: Transfer of Care Disposition Time: 23:00 Condition: FAIR
[2018-11-21 22:30] LABS: BASO # 0.1 K/uL (0.0-0.2); BASO % 0.9 % (0.0-2.0); EOS # 0.1 K/uL (0.0-0.7); EOS % 1.7 % (0.0-4.0); HEMOGLOBIN 13.9 g/dL (12.0-18.0); LYMPH # 2.3 K/uL (1.0-4.3); LYMPH % 30.5 % (20.0-40.0); MEAN CELL VOLUME 88.6 fl (80.0-94.0); MEAN CORPUSCULAR HEMOGLOBIN 28.7 pg (27.0-31.0); MEAN CORPUSCULAR HGB CONC 32.4 g/dL (33.0-37.0); MEAN PLATELET VOLUME 9.1 fl (7.2-11.7); MONO # 0.5 K/uL (0.0-0.8); MONO % 6.2 % (0.0-10.0); NEUT # 4.6 K/uL (1.8-7.0); NEUT % 60.7 % (50.0-75.0); NRBC % 0.2 % (0.0-0.0); RBC 4.83 Mil/uL (4.40-5.90); RED CELL DISTRIBUTION WIDTH 15.2 % (11.5-14.5); WHITE BLOOD COUNT 7.6 K/uL (4.8-10.8)
[2018-11-21 22:39] LABS: ALB/GLOB RATIO 1.4 (1.0-2.1); ALBUMIN 4.6 g/dL (3.5-5.0); ALT/SGPT 24 U/L (21-72); AST/SGOT 30 U/L (17-59); BLOOD UREA NITROGEN 17 mg/dl (9-20); CALCIUM 9.2 mg/dL (8.4-10.2); GFR NON-AFRICAN AMERICAN 52
[2018-11-21] MEDS ORDERED: Sodium Chloride 0.9% 1,000 ML IV STA (22:48)
[2018-11-22] MEDS ORDERED: Sodium Chloride 0.9% 1,000 ML IV STA ×5 (01:39→08:20)
--- NOTE | 2018-11-22 01:40 | ED PDOC ---
- Laboratory Results Result Diagrams: 11/21/18 22:10 11/22/18 02:02 Lab Results: Total Bilirubin 0.2 mg/dl (0.2-1.3) 11/22/18 02:02 AST 48 U/L (17-59) 11/22/18 02:02 ALT 33 U/L (21-72) 11/22/18 02:02 Alkaline Phosphatase 53 U/L (38-126) 11/22/18 02:02 Total Protein 6.8 G/DL (6.3-8.2) 11/22/18 02:02 Albumin 3.8 g/dL (3.5-5.0) 11/22/18 02:02 Globulin 3.0 gm/dL (2.2-3.9) 11/22/18 02:02 Albumin/Globulin Ratio 1.3 (1.0-2.1) 11/22/18 02:02 Urine Color Yellow (YELLOW) 11/22/18 02:33 Urine Clarity Slighty-cloudy (Clear) 11/22/18 02:33 Urine pH 6.0 (5.0-8.0) 11/22/18 02:33 Ur Specific [place] 1.016 (1.003-1.030) 11/22/18 02:33 Urine Protein 30 mg/dL (NEGATIVE) 11/22/18 02:33 Urine Glucose (UA) Neg mg/dL (NEGATIVE) 11/22/18 02:33 Urine Ketones Negative mg/dL (NEGATIVE) 11/22/18 02:33 Urine Blood Trace (NEGATIVE) H 11/22/18 02:33 Urine Nitrate Negative (NEGATIVE) 11/22/18 02:33 Urine Bilirubin Negative (NEGATIVE) 11/22/18 02:33 Urine Urobilinogen 0.2-1.0 mg/dL (0.2-1.0) 11/22/18 02:33 Ur Leukocyte Esterase Neg Alejandra/uL (Negative) 11/22/18 02:33 Urine RBC (Auto) 1 /hpf (0-3) 11/22/18 02:33 Urine Microscopic WBC 3 /hpf (0-5) 11/22/18 02:33 Ur Squamous Epith Cells 1 /hpf (0-5) 11/22/18 02:33 Hyaline Casts 11-20 /hpf (0-2) H 11/22/18 02:33 <Michel Clarke Y - Last Filed: 11/22/18 04:53> - Laboratory Results Result Diagrams: 11/21/18 22:10 11/22/18 02:02 Lab Results: Total Bilirubin 0.3 mg/dl (0.2-1.3) 11/21/18 22:10 AST 30 U/L (17-59) 11/21/18 22:10 ALT 24 U/L (21-72) 11/21/18 22:10 Alkaline Phosphatase 57 U/L (38-126) 11/21/18 22:10 Total Protein 7.7 G/DL (6.3-8.2) 11/21/18 22:10 Albumin 4.6 g/dL (3.5-5.0) 11/21/18 22:10 Globulin 3.2 gm/dL (2.2-3.9) 11/21/18 22:10 Albumin/Globulin Ratio 1.4 (1.0-2.1) 11/21/18 22:10 - ECG O2 Sat by Pulse Oximetry: 97 - Progress ED Course And Treament: case endorsed to credit underwriter from Lita RITTER pending repeat labs 00:30 Patient sleeping; no distress 2:00 Patient sleeping; no distress CO2 improved. CK trending up. Case discussed with ED attending Dr. Clarke, will repeat after aggressive hydration 3:30 Patient sleeping; no distress <Mehnaz Alvarado - Last Filed: 11/22/18 04:58> Medical Decision Making Medical Decision Making: penindg repeta labs after fluids <Michel Clarke Y - Last Filed: 11/22/18 04:53> Disposition <Michel Clarke - Last Filed: 11/22/18 04:53> - POA Present On Arrival: None - Disposition Disposition: Transfer of Care Disposition Time: 05:00 Patient Signed Over To: Michel Clarke Handoff Comments: pending repeat CK after IVF <Mehnaz Alvarado - Last Filed: 11/22/18 04:58> - Clinical Impression Clinical Impression: Aggressive behavior, Drug abuse, Elevated creatine kinase level - Disposition Condition: FAIR Forms: [employer] (Amharic)
[2018-11-22 02:24] LABS: ALB/GLOB RATIO 1.3 (1.0-2.1); ALBUMIN 3.8 g/dL (3.5-5.0); ALT/SGPT 33 U/L (21-72); AST/SGOT 48 U/L (17-59); BLOOD UREA NITROGEN 16 mg/dl (9-20); CALCIUM 8.5 mg/dL (8.4-10.2); GFR NON-AFRICAN AMERICAN > 60
[2018-11-22 02:47] LABS: SQUAMOUS EPITHIAL 1 /hpf (0-5); URINE BILIRUBIN NEGATIVE (NEGATIVE); URINE BLOOD TRACE (NEGATIVE); URINE CLARITY SLIGHTY-CLOUDY (Clear); URINE COLOR YELLOW (YELLOW); URINE GLUCOSE (UA) NEG (NEGATIVE); URINE LEUKOCYTE ESTERASE NEG Leu/uL (Negative); URINE PROTEIN 30 mg/dL (NEGATIVE); URINE UROBILINOGEN 0.2-1.0 mg/dL (0.2-1.0)
[2018-11-22 03:09] LABS: BARBITURATES, UR NEGATIVE (NEGATIVE); BENZODIAZEPINES, UR NEGATIVE (NEGATIVE); OPIATES, UR NEGATIVE (NEGATIVE); PHENCYCLIDINE, UR POSITIVE (NEGATIVE)
--- NOTE | 2018-11-22 07:20 | ED PDOC ---
- Laboratory Results Result Diagrams: 11/23/18 05:15 11/25/18 05:45 Lab Results: Total Bilirubin 0.2 mg/dl (0.2-1.3) 11/22/18 02:02 AST 48 U/L (17-59) 11/22/18 02:02 ALT 33 U/L (21-72) 11/22/18 02:02 Alkaline Phosphatase 53 U/L (38-126) 11/22/18 02:02 Total Protein 6.8 G/DL (6.3-8.2) 11/22/18 02:02 Albumin 3.8 g/dL (3.5-5.0) 11/22/18 02:02 Globulin 3.0 gm/dL (2.2-3.9) 11/22/18 02:02 Albumin/Globulin Ratio 1.3 (1.0-2.1) 11/22/18 02:02 Urine Color Yellow (YELLOW) 11/22/18 02:33 Urine Clarity Slighty-cloudy (Clear) 11/22/18 02:33 Urine pH 6.0 (5.0-8.0) 11/22/18 02:33 Ur Specific [place] 1.016 (1.003-1.030) 11/22/18 02:33 Urine Protein 30 mg/dL (NEGATIVE) 11/22/18 02:33 Urine Glucose (UA) Neg mg/dL (NEGATIVE) 11/22/18 02:33 Urine Ketones Negative mg/dL (NEGATIVE) 11/22/18 02:33 Urine Blood Trace (NEGATIVE) H 11/22/18 02:33 Urine Nitrate Negative (NEGATIVE) 11/22/18 02:33 Urine Bilirubin Negative (NEGATIVE) 11/22/18 02:33 Urine Urobilinogen 0.2-1.0 mg/dL (0.2-1.0) 11/22/18 02:33 Ur Leukocyte Esterase Neg Alejandra/uL (Negative) 11/22/18 02:33 Urine RBC (Auto) 1 /hpf (0-3) 11/22/18 02:33 Urine Microscopic WBC 3 /hpf (0-5) 11/22/18 02:33 Ur Squamous Epith Cells 1 /hpf (0-5) 11/22/18 02:33 Hyaline Casts 11-20 /hpf (0-2) H 11/22/18 02:33 - ECG O2 Sat by Pulse Oximetry: 100 (RA) Pulse Ox Interpretation: Normal Medical Decision Making Medical Decision Makin Patient signed out to me by Dr. Clarke pending repeat labs, disposition. 815 Repeat labs reviewed[place] [address] after 4L of fluids Additional 1L IV Fluids ordered Call placed to hospitalist mason apprentice. [address] Elam, who accepts patient for admission to telemetry. Discussed plan with patient, and is agreeable for admission. ----- ScribeAttestation: Documented byEsperanza Edwards, acting as a scribe for Kia Thakkar MD. Provider ScribeAttestation: All medical record entries made by the Scribe were at my direction and personally dictated by me. I have reviewed the chart and agree that the record accurately reflects my personal performance of the history, physical exam, medical decision making, and the department course for this patient. I have also personally directed, reviewed, and agree with the discharge instructions and d isposition. Disposition - Clinical Impression Clinical Impression: Rhabdomyolysis, PCP abuse - POA Present On Arrival: None - Disposition Disposition: Admitted as In-Patient Disposition Time: 08:23 Condition: STABLE
--- NOTE | 2018-11-22 09:35 | CP.PCM.HP ---
<Hernandez Li - Last Filed: 11/22/18 14:44> History of Present Illness - History of Present Illness History of Present Illness: Patient is a 38 yo male with PMHx of HTN, asthma, and hypercholesterolemia who was brought in by EMS and [place] [employer] after patient was seen struggling with his gait. Patient admit on using PCP and alcohol today morning. In the ER patient patient was combative and irritated. During the interview with me patient had no complains and unsure why he was in the hospital. He denies any fall or trauma, he denies any chest pain, cough, abdominal pain diarrhea, constipation, dysuria, polyuria or any other symptoms. PMD: unable to provide ( Terrance) Allergy None Medication: Cozaar, Hydrochlorothiazide PMH HTN PSH none PFH: Mom and dad with DM/Htn SOcial Drink social, smoke 5 cig a day, take PCP, denies taking any other drugs ED course vitals 98.2, 89pulse, 148/115 bp, 18 rr, ox 97 Patient was combative and received multiple dose of Haldol 5mg x2 and ativan 2mg and 4 lit of IV fluid CBC: CO 11L, CK 1391->17782 Urine Blood high with hyaline cast 11-20 UTox positive for PCP and alcohol Patient will be admitted for Rhabdomyolysis Present on Admission - Present on Admission Any Indicators Present on Admission: No Past Patient History - Past Medical History & Family History Past Medical History?: Yes - Past Social History Alcohol: > 2 Drinks/Day Drugs: Other (PCP) - CARDIAC Hx Hypercholesterolemia: Yes Hx Hypertension: Yes (non compliant) - PULMONARY Hx Asthma: Yes - HEMATOLOGICAL/ONCOLOGICAL Hx Human Immunodeficiency Virus (HIV): No - MUSCULOSKELETAL/RHEUMATOLOGICAL Hx Falls: No - PSYCHIATRIC Hx Depression: No - SURGICAL HISTORY Hx Surgeries: No - ANESTHESIA Hx Anesthesia: No Hx Anesthesia Reactions: No Hx Malignant Hyperthermia: No Meds Allergies/Adverse Reactions: Allergies Allergy/AdvReac Type Severity Reaction Status Date / Time No Known Allergies Allergy Verified 08/22/18 19:09 Physical Exam - Constitutional Appears: Well, Non-toxic, Toxic, In Acute Distress - Head Exam Head Exam: ATRAUMATIC, NORMAL INSPECTION, NORMOCEPHALIC - Eye Exam Eye Exam: EOMI, Normal appearance, PERRL Pupil Exam: NORMAL ACCOMODATION, PERRL - ENT Exam ENT Exam: Mucous Membranes Moist, Normal Exam - Neck Exam Neck exam: Positive for: Normal Inspection - Respiratory Exam Respiratory Exam: Clear to Auscultation Bilateral, NORMAL BREATHING PATTERN - Cardiovascular Exam Cardiovascular Exam: REGULAR RHYTHM, +S1, +S2 - GI/Abdominal Exam GI & Abdominal Exam: Normal Bowel Sounds, Soft - Extremities Exam Extremities exam: Positive for: normal inspection - Back Exam Back exam: NORMAL INSPECTION - Neurological Exam Neurological exam: Alert, CN II-XII Intact, Oriented x3 - Psychiatric Exam Psychiatric exam: Normal Affect, Normal Mood - Skin Skin Exam: Dry, Intact, Normal Color, Warm Results - Vital Signs Recent Vital Signs: Last Vital Signs Temp 98.4 F 11/22/18 07:39 Pulse 98 H 11/22/18 07:39 Resp 17 11/22/18 07:39 BP 154/109 H 11/22/18 07:39 Pulse Ox 100 11/22/18 08:23 - Labs Result Diagrams: 11/21/18 22:10 11/22/18 02:02 Labs: Laboratory Results - last 24 hr 11/21/18 11/21/18 11/21/18 22:10 22:10 23:30 WBC 7.6 RBC 4.83 Hgb 13.9 Hct 42.8 MCV 88.6 MCH 28.7 MCHC 32.4 L RDW 15.2 H Plt Count 263 MPV 9.1 Neut % (Auto) 60.7 Lymph % (Auto) 30.5 Fergus % (Auto) 6.2 Eos % (Auto) 1.7 Baso % (Auto) 0.9 Neut # (Auto) 4.6 Lymph # (Auto) 2.3 Fergus # (Auto) 0.5 Eos # (Auto) 0.1 Baso # (Auto) 0.1 Sodium 142 Potassium 3.5 L Chloride 107 Carbon Dioxide 11 L* D Anion Gap 28 H BUN 17 Creatinine 1.5 Est GFR ( Amer) > 60 Est GFR (Non-Af Amer) 52 Random Glucose 103 Calcium 9.2 Total Bilirubin 0.3 AST 30 ALT 24 Alkaline Phosphatase 57 Total Creatine Kinase 1391 H Total Protein 7.7 Albumin 4.6 Globulin 3.2 Albumin/Globulin Ratio 1.4 Urine Color Urine Clarity Urine pH Ur Specific Bern Urine Protein Urine Glucose (UA) Urine Ketones Urine Blood Urine Nitrate Urine Bilirubin Urine Urobilinogen Ur Leukocyte Esterase Urine RBC (Auto) Urine Microscopic WBC Ur Squamous Epith Cells Hyaline Casts Urine Opiates Screen Urine Methadone Screen Ur Barbiturates Screen Ur Phencyclidine Scrn Ur Amphetamines Screen U Benzodiazepines Scrn U Oth Cocaine Metabols U Cannabinoids Screen Alcohol, Quantitative 73 H 11/22/18 11/22/18 11/22/18 02:02 02:33 02:33 WBC RBC Hgb Hct MCV MCH MCHC RDW Plt Count MPV Neut % (Auto) Lymph % (Auto) Fergus % (Auto) Eos % (Auto) Baso % (Auto) Neut # (Auto) Lymph # (Auto) Fergus # (Auto) Eos # (Auto) Baso # (Auto) Sodium 142 Potassium 4.0 Chloride 111 H Carbon Dioxide 22 Anion Gap 13 BUN 16 Creatinine 1.2 Est GFR ( Amer) > 60 Est GFR (Non-Af Amer) > 60 Random Glucose 92 Calcium 8.5 Total Bilirubin 0.2 AST 48 ALT 33 Alkaline Phosphatase 53 Total Creatine Kinase 4445 H Total Protein 6.8 Albumin 3.8 Globulin 3.0 Albumin/Globulin Ratio 1.3 Urine Color Yellow Urine Clarity Slighty-cloudy Urine pH 6.0 Ur Specific Bern 1.016 Urine Protein 30 Urine Glucose (UA) Neg Urine Ketones Negative Urine Blood Trace H Urine Nitrate Negative Urine Bilirubin Negative Urine Urobilinogen 0.2-1.0 Ur Leukocyte Esterase Neg Urine RBC (Auto) 1 Urine Microscopic WBC 3 Ur Squamous Epith Cells 1 Hyaline Casts 11-20 H Urine Opiates Screen Negative Urine Methadone Screen Negative Ur Barbiturates Screen Negative Ur Phencyclidine Scrn Positive H Ur Amphetamines Screen Negative U Benzodiazepines Scrn Negative U Oth Cocaine Metabols Negative U Cannabinoids Screen Negative Alcohol, Quantitative 11/22/18 07:04 WBC RBC Hgb Hct MCV MCH MCHC RDW Plt Count MPV Neut % (Auto) Lymph % (Auto) Fergus % (Auto) Eos % (Auto) Baso % (Auto) Neut # (Auto) Lymph # (Auto) Fergus # (Auto) Eos # (Auto) Baso # (Auto) Sodium Potassium Chloride Carbon Dioxide Anion Gap BUN Creatinine Est GFR ( Amer) Est GFR (Non-Af Amer) Random Glucose Calcium Total Bilirubin AST ALT Alkaline Phosphatase Total Creatine Kinase 25850 H Total Protein Albumin Globulin Albumin/Globulin Ratio Urine Color Urine Clarity Urine pH Ur Specific Bern Urine Protein Urine Glucose (UA) Urine Ketones Urine Blood Urine Nitrate Urine Bilirubin Urine Urobilinogen Ur Leukocyte Esterase Urine RBC (Auto) Urine Microscopic WBC Ur Squamous Epith Cells Hyaline Casts Urine Opiates Screen Urine Methadone Screen Ur Barbiturates Screen Ur Phencyclidine Scrn Ur Amphetamines Screen U Benzodiazepines Scrn U Oth Cocaine Metabols U Cannabinoids Screen Alcohol, Quantitative Assessment & Plan - Assessment and Plan (Free Text) Assessment: marisa is a 38 yo male with PMHx of HTN, asthma, and hypercholesterolemia who was brought in by EMS due to AMS/agitation, Patient was under PCP and alcohol intoxication with Diagnosis of Rhabdomyolysis Chest X-ray no consolidation EKG sinus tackycardia Plan Rhabdomyolysis due to drug intoxication Vitals: 98.0, 93HR, BP 155/97, 18 RR, [place] [address] S/P 4 L fluid Continue IVF F/U BMP HTN Uncontrolled hold home meds due to nephrotox Will order Norvasc 5mg DVT prophylaxis SCD Lovenox 40 sc Regular diet Full CODE <Luis Angel Nelson D - Last Filed: 11/22/18 16:20> Results - Vital Signs Recent Vital Signs: Last Vital Signs Temp 98.2 F 11/22/18 16:18 Pulse 85 11/22/18 16:18 Resp 16 11/22/18 16:18 BP 164/100 H 11/22/18 16:18 Pulse Ox 100 11/22/18 16:18 - Labs Result Diagrams: 11/21/18 22:10 11/22/18 02:02 Labs: Laboratory Results - last 24 hr 11/21/18 11/21/18 11/21/18 22:10 22:10 23:30 WBC 7.6 RBC 4.83 Hgb 13.9 Hct 42.8 MCV 88.6 MCH 28.7 MCHC 32.4 L RDW 15.2 H Plt Count 263 MPV 9.1 Neut % (Auto) 60.7 Lymph % (Auto) 30.5 Fergus % (Auto) 6.2 Eos % (Auto) 1.7 Baso % (Auto) 0.9 Neut # (Auto) 4.6 Lymph # (Auto) 2.3 Fergus # (Auto) 0.5 Eos # (Auto) 0.1 Baso # (Auto) 0.1 Sodium 142 Potassium 3.5 L Chloride 107 Carbon Dioxide 11 L* D Anion Gap 28 H BUN 17 Creatinine 1.5 Est GFR ( Amer) > 60 Est GFR (Non-Af Amer) 52 Random Glucose 103 Calcium 9.2 Total Bilirubin 0.3 AST 30 ALT 24 Alkaline Phosphatase 57 Total Creatine Kinase 1391 H Total Protein 7.7 Albumin 4.6 Globulin 3.2 Albumin/Globulin Ratio 1.4 Urine Color Urine Clarity Urine pH Ur Specific Bern Urine Protein Urine Glucose (UA) Urine Ketones Urine Blood Urine Nitrate Urine Bilirubin Urine Urobilinogen Ur Leukocyte Esterase Urine RBC (Auto) Urine Microscopic WBC Ur Squamous Epith Cells Hyaline Casts Urine Opiates Screen Urine Methadone Screen Ur Barbiturates Screen Ur Phencyclidine Scrn Ur Amphetamines Screen U Benzodiazepines Scrn U Oth Cocaine Metabols U Cannabinoids Screen Alcohol, Quantitative 73 H 11/22/18 11/22/18 11/22/18 02:02 02:33 02:33 WBC RBC Hgb Hct MCV MCH MCHC RDW Plt Count MPV Neut % (Auto) Lymph % (Auto) Fergus % (Auto) Eos % (Auto) Baso % (Auto) Neut # (Auto) Lymph # (Auto) Fergus # (Auto) Eos # (Auto) Baso # (Auto) Sodium 142 Potassium 4.0 Chloride 111 H Carbon Dioxide 22 Anion Gap 13 BUN 16 Creatinine 1.2 Est GFR ( Amer) > 60 Est GFR (Non-Af Amer) > 60 Random Glucose 92 Calcium 8.5 Total Bilirubin 0.2 AST 48 ALT 33 Alkaline Phosphatase 53 Total Creatine Kinase 4445 H Total Protein 6.8 Albumin 3.8 Globulin 3.0 Albumin/Globulin Ratio 1.3 Urine Color Yellow Urine Clarity Slighty-cloudy Urine pH 6.0 Ur Specific Bern 1.016 Urine Protein 30 Urine Glucose (UA) Neg Urine Ketones Negative Urine Blood Trace H Urine Nitrate Negative Urine Bilirubin Negative Urine Urobilinogen 0.2-1.0 Ur Leukocyte Esterase Neg Urine RBC (Auto) 1 Urine Microscopic WBC 3 Ur Squamous Epith Cells 1 Hyaline Casts 11-20 H Urine Opiates Screen Negative Urine Methadone Screen Negative Ur Barbiturates Screen Negative Ur Phencyclidine Scrn Positive H Ur Amphetamines Screen Negative U Benzodiazepines Scrn Negative U Oth Cocaine Metabols Negative U Cannabinoids Screen Negative Alcohol, Quantitative 11/22/18 07:04 WBC RBC Hgb Hct MCV MCH MCHC RDW Plt Count MPV Neut % (Auto) Lymph % (Auto) Fergus % (Auto) Eos % (Auto) Baso % (Auto) Neut # (Auto) Lymph # (Auto) Fergus # (Auto) Eos # (Auto) Baso # (Auto) Sodium Potassium Chloride Carbon Dioxide Anion Gap BUN Creatinine Est GFR ( Amer) Est GFR (Non-Af Amer) Random Glucose Calcium Total Bilirubin AST ALT Alkaline Phosphatase Total Creatine Kinase 22106 H Total Protein Albumin Globulin Albumin/Globulin Ratio Urine Color Urine Clarity Urine pH Ur Specific Bern Urine Protein Urine Glucose (UA) Urine Ketones Urine Blood Urine Nitrate Urine Bilirubin Urine Urobilinogen Ur Leukocyte Esterase Urine RBC (Auto) Urine Microscopic WBC Ur Squamous Epith Cells Hyaline Casts Urine Opiates Screen Urine Methadone Screen Ur Barbiturates Screen Ur Phencyclidine Scrn Ur Amphetamines Screen U Benzodiazepines Scrn U Oth Cocaine Metabols U Cannabinoids Screen Alcohol, Quantitative Attending/Attestation - Attestation I have personally seen and examined this patient.: Yes I have fully participated in the care of the patient.: Yes I have reviewed all pertinent clinical information: Yes Notes (Text): 11/22/18 16:19 Patient seen and examined with resident. Case discussed and agreed with as sessment and plan of management.
--- NOTE | 2018-11-22 11:45 | RAD ---
HISTORY: ETOH abuse COMPARISON: Chest x-ray performed 09/27/17 TECHNIQUE: Chest, one view. FINDINGS: LUNGS: No focal consolidation. Please note that chest x-ray has limited sensitivity for the detection of pulmonary masses. PLEURA: No significant pleural effusion identified. No definite pneumothorax . CARDIOVASCULAR: Heart size appears within normal limits. Ectatic aorta. Atherosclerotic calcification the aortic knob. OSSEOUS STRUCTURES: Acromioclavicular arthropathy. Degenerative changes of the spine. VISUALIZED UPPER ABDOMEN: Unremarkable. OTHER FINDINGS: None. IMPRESSION: No focal consolidation.
--- NOTE | 2018-11-22 17:16 | CARD ---
APPROVED REPORT Date of service: 11/22/2018 EKG Measurement Heart [id number] <Conclusion> Sinus tachycardia Otherwise normal ECG
[2018-11-22 18:17] VITALS: BMI 29.4
[2018-11-22] MEDS: Sodium Chloride 0.9% 1,000 ML IV SCH (20:38)
[2018-11-23] MEDS: Sodium Chloride 0.9% 1,000 ML IV SCH ×5 (00:51→17:34)
[2018-11-23 05:50] LABS: HEMOGLOBIN 13.2 g/dL (12.0-18.0); MEAN CELL VOLUME 86.2 fl (80.0-94.0); MEAN CORPUSCULAR HEMOGLOBIN 28.7 pg (27.0-31.0); MEAN CORPUSCULAR HGB CONC 33.4 g/dL (33.0-37.0); RBC 4.58 Mil/uL (4.40-5.90); WHITE BLOOD COUNT 6.4 K/uL (4.8-10.8)
[2018-11-23 06:26] LABS: BLOOD UREA NITROGEN 9 mg/dl (9-20); CALCIUM 8.2 mg/dL (8.4-10.2); GFR NON-AFRICAN AMERICAN > 60
[2018-11-23] MEDS: Potassium Chloride 20 mEq ER Tab PO SCH (09:11)
[2018-11-23] MEDS: Enoxaparin 40 mg Syringe SC SCH (09:16)
--- NOTE | 2018-11-23 10:47 | CP.PCM.PN ---
<Hernandez Li - Last Filed: 11/23/18 14:13> Subjective - Date & Time of Evaluation Date of Evaluation: 11/23/18 Time of Evaluation: 07:00 - Subjective Subjective: Patient seen and examined at bedside, no acute event overnight, business services officer at bedside. Patient have no complains, he denies muscle ache, confusion, dizziness, chest pain, sob, abd pain diarrhea, constipation or any other symptoms. Objective - Vital Signs/Intake and Output Vital Signs (last 24 hours): Temp Pulse Resp BP Pulse Ox 98.1 F 83 18 141/90 97 11/23/18 07:59 11/23/18 09:11 11/23/18 07:59 11/23/18 09:11 11/23/18 07:59 Intake and Output: 11/23/18 11/23/18 06:59 18:59 Intake Total 1000 Output Total 750 Balance 250 - Medications Medications: Current Medications Acetaminophen (Tylenol 325mg Tab) 650 mg PO Q6 PRN PRN Reason: Other Last Admin: 11/23/18 05:21 Dose: 650 mg Amlodipine Besylate (Norvasc) 5 mg PO DAILY [facility] Last Admin: 11/23/18 09:11 Dose: 5 mg Enoxaparin Sodium (Lovenox) 40 mg SC DAILY [facility]; Protocol Last Admin: 11/23/18 09:16 Dose: 40 mg Famotidine (Pepcid) 20 mg PO DAILY [facility] Last Admin: 11/23/18 05:18 Dose: 20 mg Sodium Chloride (Sodium Chloride 0.9%) 1,000 mls @ 250 mls/hr IV .Q4H [facility] Stop: 11/23/18 20:31 Last Admin: 11/23/18 09:13 Dose: 250 mls/hr Potassium Chloride (K-Dur 20 Meq Er Tab) 20 meq PO DAILY [facility] Last Admin: 11/23/18 09:11 Dose: 20 meq Tramadol HCl (Ultram) 50 mg PO Q6 PRN PRN Reason: Pain, severe (8-10) Last Admin: 11/23/18 10:29 Dose: 50 mg - Labs Labs: 11/23/18 05:15 11/23/18 05:15 - Constitutional Appears: Well, Non-toxic, No Acute Distress - Head Exam Head Exam: ATRAUMATIC, NORMAL INSPECTION, NORMOCEPHALIC - Eye Exam Eye Exam: EOMI, Normal appearance, PERRL Pupil Exam: NORMAL ACCOMODATION, PERRL - ENT Exam ENT Exam: Mucous Membranes Moist, Normal Exam - Neck Exam Neck Exam: Full ROM, Normal Inspection - Respiratory Exam Respiratory Exam: Clear to Ausculation Bilateral, NORMAL BREATHING PATTERN - Cardiovascular Exam Cardiovascular Exam: REGULAR RHYTHM, +S1, +S2 - GI/Abdominal Exam GI & Abdominal Exam: Soft, Normal Bowel Sounds - Extremities Exam Extremities Exam: Full ROM, Normal Capillary Refill, Normal Inspection - Back Exam Back Exam: NORMAL INSPECTION - Neurological Exam Neurological Exam: Alert, Awake, Oriented x3 - Psychiatric Exam Psychiatric exam: Normal Affect, Normal Mood - Skin Skin Exam: Dry, Intact, Normal Color, Warm Assessment and Plan - Assessment and Plan (Free Text) Assessment: Assessment: Patient is a 38 yo male with PMHx of HTN, asthma, and hypercholesterolemia who was brought in by EMS due to AMS/agitation, Patient was under PCP and alcohol intoxication with Diagnosis of Rhabdomyolysis Chest X-ray no consolidation EKG sinus tackycardia Plan Rhabdomyolysis due to drug intoxication Afebrile, HR 80, BP 143/95 [place] [address] trending down, 14788 S/P 4 L fluid Continue IVF at 250ml/h F/U BMP Hypokalemia potassium 3.4 KCl 20meq PO HTN Uncontrolled hold home meds due to nephrotox Continue Norvasc 5mg DVT prophylaxis SCD Lovenox 40 sc Regular diet <Marleen Jackman - Last Filed: 11/23/18 15:39> Objective - Vital Signs/Intake and Output Vital Signs (last 24 hours): Temp Pulse Resp BP Pulse Ox 97.8 F 80 18 143/95 H 98 11/23/18 12:06 11/23/18 12:06 11/23/18 12:06 11/23/18 12:06 11/23/18 12:06 Intake and Output: 11/23/18 11/23/18 06:59 18:59 Intake Total 1000 Output Total 750 Balance 250 - Medications Medications: Current Medications Acetaminophen (Tylenol 325mg Tab) 650 mg PO Q6 PRN PRN Reason: Other Last Admin: 11/23/18 05:21 Dose: 650 mg Amlodipine Besylate (Norvasc) 5 mg PO DAILY [facility] Last Admin: 11/23/18 09:11 Dose: 5 mg Enoxaparin Sodium (Lovenox) 40 mg SC DAILY [facility]; Protocol Last Admin: 11/23/18 09:16 Dose: 40 mg Famotidine (Pepcid) 20 mg PO DAILY [facility] Last Admin: 11/23/18 05:18 Dose: 20 mg Sodium Chloride (Sodium Chloride 0.9%) 1,000 mls @ 250 mls/hr IV .Q4H [facility] Stop: 11/23/18 20:31 Last Admin: 11/23/18 13:50 Dose: 250 mls/hr Potassium Chloride (K-Dur 20 Meq Er Tab) 20 meq PO DAILY [facility] Last Admin: 11/23/18 09:11 Dose: 20 meq Tramadol HCl (Ultram) 50 mg PO Q6 PRN PRN Reason: Pain, severe (8-10) Last Admin: 11/23/18 10:29 Dose: 50 mg - Labs Labs: 11/23/18 05:15 11/23/18 05:15 Attending/Attestation - Attestation I have personally seen and examined this patient.: Yes I have fully participated in the care of the patient.: Yes I have reviewed all pertinent clinical information, including history, physical exam and plan: Yes Notes (Text): 11/23/18 15:38 agree with findings and plan as above.
--- NOTE | 2018-11-24 07:11 | CP.PCM.PN ---
<MyrnaAndrewwilver Rodriguezolo - Last Filed: 11/24/18 12:44> Subjective - Date & Time of Evaluation Date of Evaluation: 11/24/18 Time of Evaluation: 09:50 - Subjective Subjective: Patient seen and examined this morning at bedside. Patient remains in custody of police w/ 2 officers presents. There are no acute events overnight, NAD. Michael king laying in bed comfortably. Patient currently denies pain. Patinet receiving IV fluids. Patient has no complaints. Patient denies headaches, chest pain, dizziness, dyspnea, abdominal pain, nuasea, vomiting, diarrhea Objective - Vital Signs/Intake and Output Vital Signs (last 24 hours): Temp Pulse Resp BP Pulse Ox 98.1 F 68 18 135/85 98 11/24/18 01:00 11/24/18 01:00 11/24/18 01:00 11/24/18 01:00 11/24/18 01:00 Intake and Output: 11/24/18 11/24/18 06:59 18:59 Intake Total 3680 Balance 3680 - Medications Medications: Current Medications Acetaminophen (Tylenol 325mg Tab) 650 mg PO Q6 PRN PRN Reason: Other Last Admin: 11/23/18 05:21 Dose: 650 mg Amlodipine Besylate (Norvasc) 5 mg PO DAILY [facility] Last Admin: 11/23/18 09:11 Dose: 5 mg Enoxaparin Sodium (Lovenox) 40 mg SC DAILY [facility]; Protocol Last Admin: 11/23/18 09:16 Dose: 40 mg Famotidine (Pepcid) 20 mg PO DAILY [facility] Last Admin: 11/23/18 05:18 Dose: 20 mg Potassium Chloride (K-Dur 20 Meq Er Tab) 20 meq PO DAILY [facility] Last Admin: 11/23/18 09:11 Dose: 20 meq Tramadol HCl (Ultram) 50 mg PO Q6 PRN PRN Reason: Pain, severe (8-10) Last Admin: 11/23/18 10:29 Dose: 50 mg - Labs Labs: 11/23/18 05:15 11/23/18 05:15 - Constitutional Appears: Non-toxic, No Acute Distress - Head Exam Head Exam: ATRAUMATIC, NORMAL INSPECTION, NORMOCEPHALIC - Eye Exam Eye Exam: Normal appearance - ENT Exam ENT Exam: Mucous Membranes Moist - Neck Exam Neck Exam: Full ROM. absent: Tenderness - Respiratory Exam Respiratory Exam: Clear to Ausculation Bilateral, NORMAL BREATHING PATTERN. absent: Decreased Breath Sounds, Rales, Rhonchi, Wheezes, Respiratory Distress - Cardiovascular Exam Cardiovascular Exam: REGULAR RHYTHM, RRR, +S1, +S2. absent: Tachycardia - GI/Abdominal Exam GI & Abdominal Exam: Soft, Normal Bowel Sounds. absent: Tenderness - Extremities Exam Extremities Exam: Normal Inspection. absent: Calf Tenderness, Pedal Edema - Neurological Exam Neurological Exam: Alert, Awake, Oriented x3 - Skin Skin Exam: Dry, Normal Color, Warm Assessment and Plan - Assessment and Plan (Free Text) Assessment: 38 y/o man w/ PMH of HTN, asthma, and hypercholesterolemia who was brought in by EMS due to AMS/agitation, Patient was under PCP and alcohol intoxication with Diagnosis of Rhabdomyolysis. Patient remains in police custody. Plan: Rhabdomyolysis due to drug intoxication - Afebrile, non-tachycardic, [place] [address] [place] [address] - c/w IVF NS @ 250mL/hr - F/U BMP Hypokalemia - resolved - potassium 3.6 - KCl 20meq PO daily HTN - Uncontrolled - hold home meds due to nephrotox - c/w Norvasc 5mg Regular diet - encourage PO intake Prophylactic measures - DVT prevention: Lovenox 40 mg SC daily <Luis Angel Nelson D - Last Filed: 11/24/18 14:16> Objective - Vital Signs/Intake and Output Vital Signs (last 24 hours): Temp Pulse Resp BP Pulse Ox 98.2 F 69 20 134/85 96 11/24/18 12:19 11/24/18 12:19 11/24/18 12:19 11/24/18 12:19 11/24/18 12:19 Intake and Output: 11/24/18 11/24/18 06:59 18:59 Intake Total 3680 Balance 3680 - Medications Medications: Current Medications Acetaminophen (Tylenol 325mg Tab) 650 mg PO Q6 PRN PRN Reason: Other Last Admin: 11/23/18 05:21 Dose: 650 mg Amlodipine Besylate (Norvasc) 5 mg PO DAILY [facility] Last Admin: 11/24/18 09:29 Dose: 5 mg Enoxaparin Sodium (Lovenox) 40 mg SC DAILY [facility]; Protocol Last Admin: 11/24/18 09:29 Dose: 40 mg Famotidine (Pepcid) 20 mg PO DAILY [facility] Last Admin: 11/24/18 09:30 Dose: 20 mg Sodium Chloride (Sodium Chloride 0.9%) 1,000 mls @ 250 mls/hr IV .Q4H [facility] Stop: 11/25/18 07:48 Last Admin: 11/24/18 09:30 Dose: 250 mls/hr Potassium Chloride (K-Dur 20 Meq Er Tab) 20 meq PO DAILY [facility] Last Admin: 11/24/18 09:29 Dose: 20 meq - Labs Labs: 11/23/18 05:15 11/24/18 09:30 Attending/Attestation - Attestation I have personally seen and examined this patient.: Yes I have fully participated in the care of the patient.: Yes I have reviewed all pertinent clinical information, including history, physical exam and plan: Yes Notes (Text): 11/24/18 13:48 Patient seen and examined with resident. Case discussed and agreed with assessment and plan.
[2018-11-24] MEDS: Potassium Chloride 20 mEq ER Tab PO SCH (09:29)
[2018-11-24] MEDS: Enoxaparin 40 mg Syringe SC SCH (09:29)
[2018-11-24] MEDS: Sodium Chloride 0.9% 1,000 ML IV SCH ×4 (09:30→22:43)
[2018-11-24 11:10] LABS: BLOOD UREA NITROGEN 6 mg/dl (9-20); GFR NON-AFRICAN AMERICAN > 60
[2018-11-24] MEDS ORDERED: Mupirocin 2% Cream TOP SCH (18:30)
[2018-11-25] MEDS: Sodium Chloride 0.9% 1,000 ML IV SCH ×2 (02:38→07:08)
[2018-11-25 05:09] VITALS: PULSE 65
[2018-11-25 07:07] LABS: BLOOD UREA NITROGEN 7 mg/dl (9-20); CALCIUM 8.7 mg/dL (8.4-10.2); GFR NON-AFRICAN AMERICAN > 60
[2018-11-25 07:56] VITALS: BP 132/88; RESP 20; TEMP 97.9
--- NOTE | 2018-11-25 09:00 | CP.PCM.DIS ---
<Hernandez Li - Last Filed: 11/25/18 13:00> Provider - Provider Date of Admission: 11/22/18 08:21 Attending physician: Edilson Elam MD Time Spent in preparation of Discharge (in minutes): 20 Diagnosis - Discharge Diagnosis (1) Secondary rhabdomyolysis Status: Acute Comment: to substance abuse (2) Aggressive behavior Status: Acute (3) Drug abuse Status: Chronic Priority: High (4) Elevated creatine kinase level Status: Acute (5) DVT prophylaxis Status: Acute Priority: Medium Hospital Course - Lab Results Lab Results: Most Recent Lab Values WBC 6.4 K/uL (4.8-10.8) 11/23/18 05:15 RBC 4.58 Mil/uL (4.40-5.90) 11/23/18 05:15 Hgb 13.2 g/dL (12.0-18.0) 11/23/18 05:15 Hct 39.5 % (35.0-51.0) 11/23/18 05:15 MCV 86.2 fl (80.0-94.0) D 11/23/18 05:15 MCH 28.7 pg (27.0-31.0) 11/23/18 05:15 MCHC 33.4 g/dL (33.0-37.0) 11/23/18 05:15 RDW 15.0 % (11.5-14.5) H 11/23/18 05:15 Plt Count 248 K/uL (130-400) 11/23/18 05:15 MPV 9.1 fl (7.2-11.7) 11/21/18 22:10 Neut % (Auto) 60.7 % (50.0-75.0) 11/21/18 22:10 Lymph % (Auto) 30.5 % (20.0-40.0) 11/21/18 22:10 Worth % (Auto) 6.2 % (0.0-10.0) 11/21/18 22:10 Eos % (Auto) 1.7 % (0.0-4.0) 11/21/18 22:10 Baso % (Auto) 0.9 % (0.0-2.0) 11/21/18 22:10 Neut # (Auto) 4.6 K/uL (1.8-7.0) 11/21/18 22:10 Lymph # (Auto) 2.3 K/uL (1.0-4.3) 11/21/18 22:10 Worth # (Auto) 0.5 K/uL (0.0-0.8) 11/21/18 22:10 Eos # (Auto) 0.1 K/uL (0.0-0.7) 11/21/18 22:10 Baso # (Auto) 0.1 K/uL (0.0-0.2) 11/21/18 22:10 Sodium 140 mmol/l (132-148) 11/25/18 05:45 Potassium 4.0 MMOL/L (3.6-5.0) 11/25/18 05:45 Chloride 106 mmol/L (98-107) 11/25/18 05:45 Carbon Dioxide 29 mmol/L (22-30) 11/25/18 05:45 Anion Gap 9 (10-20) L 11/25/18 05:45 BUN 7 mg/dl (9-20) L 11/25/18 05:45 Creatinine 0.9 mg/dl (0.8-1.5) 11/25/18 05:45 Est GFR ( Amer) > 60 11/25/18 05:45 Est GFR (Non-Af Amer) > 60 11/25/18 05:45 Random Glucose 94 mg/dL (75-110) 11/25/18 05:45 Calcium 8.7 mg/dL (8.4-10.2) 11/25/18 05:45 Total Bilirubin 0.2 mg/dl (0.2-1.3) 11/22/18 02:02 AST 48 U/L (17-59) 11/22/18 02:02 ALT 33 U/L (21-72) 11/22/18 02:02 Alkaline Phosphatase 53 U/L (38-126) 11/22/18 02:02 Total Creatine Kinase 6061 U/L (55-170) H 11/25/18 05:45 Total Protein 6.8 G/DL (6.3-8.2) 11/22/18 02:02 Albumin 3.8 g/dL (3.5-5.0) 11/22/18 02:02 Globulin 3.0 gm/dL (2.2-3.9) 11/22/18 02:02 Albumin/Globulin Ratio 1.3 (1.0-2.1) 11/22/18 02:02 Urine Color Yellow (YELLOW) 11/22/18 02:33 Urine Clarity Slighty-cloudy (Clear) 11/22/18 02:33 Urine pH 6.0 (5.0-8.0) 11/22/18 02:33 Ur Specific Falcon 1.016 (1.003-1.030) 11/22/18 02:33 Urine Protein 30 mg/dL (NEGATIVE) 11/22/18 02:33 Urine Glucose (UA) Neg mg/dL (NEGATIVE) 11/22/18 02:33 Urine Ketones Negative mg/dL (NEGATIVE) 11/22/18 02:33 Urine Blood Trace (NEGATIVE) H 11/22/18 02:33 Urine Nitrate Negative (NEGATIVE) 11/22/18 02:33 Urine Bilirubin Negative (NEGATIVE) 11/22/18 02:33 Urine Urobilinogen 0.2-1.0 mg/dL (0.2-1.0) 11/22/18 02:33 Ur Leukocyte Esterase Neg Alejandra/uL (Negative) 11/22/18 02:33 Urine RBC (Auto) 1 /hpf (0-3) 11/22/18 02:33 Urine Microscopic WBC 3 /hpf (0-5) 11/22/18 02:33 Ur Squamous Epith Cells 1 /hpf (0-5) 11/22/18 02:33 Hyaline Casts 11-20 /hpf (0-2) H 11/22/18 02:33 Urine Opiates Screen Negative (NEGATIVE) 11/22/18 02:33 Urine Methadone Screen Negative (NEGATIVE) 11/22/18 02:33 Ur Barbiturates Screen Negative (NEGATIVE) 11/22/18 02:33 Ur Phencyclidine Scrn Positive (NEGATIVE) H 11/22/18 02:33 Ur Amphetamines Screen Negative (NEGATIVE) 11/22/18 02:33 U Benzodiazepines Scrn Negative (NEGATIVE) 11/22/18 02:33 U Oth Cocaine Metabols Negative (NEGATIVE) 11/22/18 02:33 U Cannabinoids Screen Negative (NEGATIVE) 11/22/18 02:33 Alcohol, Quantitative 73 mg/dl (0-10) H 11/21/18 22:10 - Hospital Course Hospital Course: Patient is a 38 yo male with PMHx of HTN, asthma, and hypercholesterolemia who was brought in by EMS and [place] [employer] after patient was seen struggling with his gait. Patient admit on using PCP and alcohol On day of admission, patient was admitted for Rhabdomyolyiss. Patient remains in police custody. ED course vitals 98.2, 89pulse, 148/115 bp, 18 rr, ox 97 Patient was combative and received multiple dose of Haldol 5mg x2 and ativan 2mg and 4 lit of IV fluid CBC: CO 11L, CK 1391->82031 Urine Blood high with hyaline cast 11-20 UTox positive for PCP and alcohol During his stay patient received IV fluid daily of @250ml/hr, BMP + CPK was followed daily and trending down. [place] CK is 6061H (prev 41897) Patient is asymptomatic, have no complains. Patient seen and examined today, no acute event overnight, Police remain in room, Patient denies any chest pain, sob, muscle pain, abd pain, fever, chills or any other symptoms. Patient is ready to be discharged home. During his stay patient was also treated for HTN and Hypokalemia. Patient need to follow up with PMD Patient education about PCP and alcohol given. ER precaution given. Discharge Exam - Head Exam Head Exam: ATRAUMATIC, NORMAL INSPECTION, NORMOCEPHALIC - Eye Exam Eye Exam: EOMI, Normal appearance, PERRL Pupil Exam: NORMAL ACCOMODATION, PERRL - Respiratory Exam Respiratory Exam: Clear to PA & Lateral, NORMAL BREATHING PATTERN, UNREMARKABLE - Cardiovascular Exam Cardiovascular Exam: REGULAR RHYTHM, +S1, +S2 - GI/Abdominal Exam GI & Abdominal Exam: Normal Bowel Sounds, Unremarkable - Extremities Exam Extremities exam: normal inspection - Back Exam Back exam: NORMAL INSPECTION - Neurological Exam Neurological exam: Alert, CN II-XII Intact, Normal Gait, Oriented x3, Reflexes Normal - Psychiatric Exam Psychiatric exam: Normal Affect, Normal Mood - Skin Skin Exam: Dry, Intact, Normal Color, Warm Discharge Plan - Follow Up Plan Condition: FAIR Disposition: OTHER INSTITUTION Patient education suggested?: Yes Instructions: Drug Abuse and Drug Addiction (DC), Drug Abuse Treatment Additional Instructions: Patient will be discharge to police custody <Luis Angel Nelson D - Last Filed: 11/25/18 13:24> Provider - Provider Date of Admission: 11/22/18 08:21 Attending physician: Edilson Elam MD Hospital Course - Lab Results Lab Results: Most Recent Lab Values WBC 6.4 K/uL (4.8-10.8) 11/23/18 05:15 RBC 4.58 Mil/uL (4.40-5.90) 11/23/18 05:15 Hgb 13.2 g/dL (12.0-18.0) 11/23/18 05:15 Hct 39.5 % (35.0-51.0) 11/23/18 05:15 MCV 86.2 fl (80.0-94.0) D 11/23/18 05:15 MCH 28.7 pg (27.0-31.0) 11/23/18 05:15 MCHC 33.4 g/dL (33.0-37.0) 11/23/18 05:15 RDW 15.0 % (11.5-14.5) H 11/23/18 05:15 Plt Count 248 K/uL (130-400) 11/23/18 05:15 MPV 9.1 fl (7.2-11.7) 11/21/18 22:10 Neut % (Auto) 60.7 % (50.0-75.0) 11/21/18 22:10 Lymph % (Auto) 30.5 % (20.0-40.0) 11/21/18 22:10 Worth % (Auto) 6.2 % (0.0-10.0) 11/21/18 22:10 Eos % (Auto) 1.7 % (0.0-4.0) 11/21/18 22:10 Baso % (Auto) 0.9 % (0.0-2.0) 11/21/18 22:10 Neut # (Auto) 4.6 K/uL (1.8-7.0) 11/21/18 22:10 Lymph # (Auto) 2.3 K/uL (1.0-4.3) 11/21/18 22:10 Worth # (Auto) 0.5 K/uL (0.0-0.8) 11/21/18 22:10 Eos # (Auto) 0.1 K/uL (0.0-0.7) 11/21/18 22:10 Baso # (Auto) 0.1 K/uL (0.0-0.2) 11/21/18 22:10 Sodium 140 mmol/l (132-148) 11/25/18 05:45 Potassium 4.0 MMOL/L (3.6-5.0) 11/25/18 05:45 Chloride 106 mmol/L (98-107) 11/25/18 05:45 Carbon Dioxide 29 mmol/L (22-30) 11/25/18 05:45 Anion Gap 9 (10-20) L 11/25/18 05:45 BUN 7 mg/dl (9-20) L 11/25/18 05:45 Creatinine 0.9 mg/dl (0.8-1.5) 11/25/18 05:45 Est GFR ( Amer) > 60 11/25/18 05:45 Est GFR (Non-Af Amer) > 60 11/25/18 05:45 Random Glucose 94 mg/dL (75-110) 11/25/18 05:45 Calcium 8.7 mg/dL (8.4-10.2) 11/25/18 05:45 Total Bilirubin 0.2 mg/dl (0.2-1.3) 11/22/18 02:02 AST 48 U/L (17-59) 11/22/18 02:02 ALT 33 U/L (21-72) 11/22/18 02:02 Alkaline Phosphatase 53 U/L (38-126) 11/22/18 02:02 Total Creatine Kinase 6061 U/L (55-170) H 11/25/18 05:45 Total Protein 6.8 G/DL (6.3-8.2) 11/22/18 02:02 Albumin 3.8 g/dL (3.5-5.0) 11/22/18 02:02 Globulin 3.0 gm/dL (2.2-3.9) 11/22/18 02:02 Albumin/Globulin Ratio 1.3 (1.0-2.1) 11/22/18 02:02 Urine Color Yellow (YELLOW) 11/22/18 02:33 Urine Clarity Slighty-cloudy (Clear) 11/22/18 02:33 Urine pH 6.0 (5.0-8.0) 11/22/18 02:33 Ur Specific Falcon 1.016 (1.003-1.030) 11/22/18 02:33 Urine Protein 30 mg/dL (NEGATIVE) 11/22/18 02:33 Urine Glucose (UA) Neg mg/dL (NEGATIVE) 11/22/18 02:33 Urine Ketones Negative mg/dL (NEGATIVE) 11/22/18 02:33 Urine Blood Trace (NEGATIVE) H 11/22/18 02:33 Urine Nitrate Negative (NEGATIVE) 11/22/18 02:33 Urine Bilirubin Negative (NEGATIVE) 11/22/18 02:33 Urine Urobilinogen 0.2-1.0 mg/dL (0.2-1.0) 11/22/18 02:33 Ur Leukocyte Esterase Neg Alejandra/uL (Negative) 11/22/18 02:33 Urine RBC (Auto) 1 /hpf (0-3) 11/22/18 02:33 Urine Microscopic WBC 3 /hpf (0-5) 11/22/18 02:33 Ur Squamous Epith Cells 1 /hpf (0-5) 11/22/18 02:33 Hyaline Casts 11-20 /hpf (0-2) H 11/22/18 02:33 Urine Opiates Screen Negative (NEGATIVE) 11/22/18 02:33 Urine Methadone Screen Negative (NEGATIVE) 11/22/18 02:33 Ur Barbiturates Screen Negative (NEGATIVE) 11/22/18 02:33 Ur Phencyclidine Scrn Positive (NEGATIVE) H 11/22/18 02:33 Ur Amphetamines Screen Negative (NEGATIVE) 11/22/18 02:33 U Benzodiazepines Scrn Negative (NEGATIVE) 11/22/18 02:33 U Oth Cocaine Metabols Negative (NEGATIVE) 11/22/18 02:33 U Cannabinoids Screen Negative (NEGATIVE) 11/22/18 02:33 Alcohol, Quantitative 73 mg/dl (0-10) H 11/21/18 22:10 Attending/Attestation - Attestation I have personally seen and examined this patient.: Yes I have fully participated in the care of the patient.: Yes I have reviewed all pertinent clinical information, including history, physical exam and plan: Yes Notes (Text): 11/25/18 13:24 Patient seen and examined with resident. Case discussed and agreed with assessment. Patient discharged in stable condition.
[2018-11-25] MEDS: Potassium Chloride 20 mEq ER Tab PO SCH (09:04)
[2018-11-25] MEDS: Enoxaparin 40 mg Syringe SC SCH ×2 (09:05→09:08)
[2018-11-26 15:29] VITALS: O2SAT 100
== END 2018-11-25 13:39 | DRG 351 ==
LOC: H.ER 21:22 → H.ERHOLD 11-22 08:21 → H.TEL 11-22 14:12
PROVIDERS: ADMIT Hospitalist; ATTEND Hospitalist
DX: M62.82 Rhabdomyolysis (principal); I10 Essential (primary) hypertension; F16.10 Hallucinogen abuse, uncomplicated; E87.6 Hypokalemia; R31.9 Hematuria, unspecified; Z91.19 Patient's noncompliance with other medical treatment and regimen; R74.8 Abnormal levels of other serum enzymes; E78.00 Pure hypercholesterolemia, unspecified; F10.129 Alcohol abuse with intoxication, unspecified; Y90.3 Blood alcohol level of 60-79 mg/100 ml; J45.909 Unspecified asthma, uncomplicated; F91.8 Other conduct disorders